=== PATIENT | female | born 1960 | race Caucasian/White ===

== ENCOUNTER 2022-05-11 07:59 | Outpatient (CLI) | payer BC, SELFPAY ==
[2022-05-11 10:52] LABS: Kit Draw Collected
== END 2022-05-11 08:00 | disposition home or self-care (01) ==
LOC: ANHGOSHLAB 08:01
PROVIDERS: PCP Internal Medicine; Visit Provider Clinical Nurse Specialist
DX: Z13.228 Encounter for screening for other metabolic disorders (principal); F41.9 Anxiety disorder, unspecified; Z87.19 Personal history of other diseases of the digestive system; R73.9 Hyperglycemia, unspecified; Z13.220 Encounter for screening for lipoid disorders
CPT/HCPCS: 36415

== ENCOUNTER → 2022-05-11 08:27 | Outpatient (CLI) | payer BC, SELFPAY ==
--- NOTE | ~2022-05-11 | XR_ITS ---
EXAMINATION: XR chest 2V DATE: 05/11/2022 08:46 INDICATION: Cough, fever, and sore throat TECHNIQUE: PA and lateral views of the chest are obtained. COMPARISON: None available FINDINGS: The lungs are free of acute opacities. No pleural effusion or pneumothorax. The cardiomedia stinal silhouette is normal. There is mild thoracic spondylosis. Bilateral breast implants are noted. IMPRESSION: 1. No acute cardiopulmonary abnormality. Reviewed, dictated and finalized at location L.
== END ==
PROVIDERS: PCP Internal Medicine; Visit Provider Clinical Nurse Specialist
DX: R05.9 Cough, unspecified (principal); R50.9 Fever, unspecified; J02.9 Acute pharyngitis, unspecified
CPT/HCPCS: 71046

== ENCOUNTER 2022-05-22 13:23 | Outpatient (CLI) | payer BC, SELFPAY ==
--- NOTE | 2022-05-22 13:49 | ECHO_ITS ---
Patient Info Name: Tari Kern Age: 62 years : 1960 Gender: Female Ht: 64 in Wt: 158 lbs BSA: 1.82 m2 Technical Quality: Fair Exam Date: 05/22/2022 2:04 PM Exam Location: [facility] Pulmonary Patient Status: Outpatient Admit Date: 05/22/2022 Staff Ordering Physician: Yessy Betts Registered Respiratory Therapist: Cassandra Cruz RDCS Attending Provider: Yessy Betts Referring Physician: Roxane LEONE; Exam Type: CA echo doppler color flow Study Info Indications - Hypotension, unspecified Complete two-dimensional, color flow and Doppler transthoracic echocardiogram is performed. Summary 1. Complete two-dimensional, color flow and Doppler transthoracic echocardiogram is performed. 2. Left ventricular chamber dimension is normal. 3. Left ventricular systolic function is normal, estimated at 60-65%. 4. There is mild concentric increased left ventricular wall thickness. 5. The left ventricular diastolic function is grade I diastolic dysfunction. 6. E/e' 12 is mildly elevated. 7. Global longitudinal strain is abnormal at -15.7%. 8. There is trivial pericardial effusion. Left Ventricle E/e' 12 is mildly elevated. Global longitudinal strain is abnormal at -15.7%. Left ventricular chamber dimension is normal. Left ventricular systolic function is normal, estimated at 60-65%. There is mild concentric increased left ventricular wall thickness. The left ventricular diastolic function is grade I diastolic dysfunction. Right Ventricle Right ventricular chamber dimension is normal. Right ventricular systolic function is normal. Left Atria Left atrial chamber dimension is normal. Right Atria Right atrial chamber dimension is normal. Aortic Valve The aortic valve is trileaflet. There is no aortic valve stenosis. There is no aortic valve regurgitation. Pulmonic Valve There is no pulmonic regurgitation. Mitral Valve There is no mitral valve stenosis. There is no mitral valve regurgitation. Tricuspid Valve There is no tricuspid valve regurgitation. Pericardium/Pleural There is trivial pericardial effusion. Inferior Vena Cava Normal inferior vena cava with >50% collapse upon inspiration consistent with normal right atrial pressure, 5 mmHg. Aorta The aortic root size at the sinus of Valsalva is normal. Left Ventricular Outflow Tract Name Value Normal LVOT 2D LVOT Diameter 1.9 cm LVOT Doppler LVOT Peak Gradient 5 mmHg LVOT Mean Gradient 3 mmHg LVOT VTI 18 cm LVOT VTI/AV VTI Ratio 1.0 LVOT Stroke Volume 52 ml LVOT CO 4.6 l/min LVOT CI 2.5 l/min/m2 Pulmonic Valve Name Value Normal RVOT Doppler RVOT Peak Gradient 2
== END 2022-05-22 13:24 | disposition home or self-care (01) ==
PROVIDERS: PCP Internal Medicine; Visit Provider Clinical Nurse Specialist
DX: R07.9 Chest pain, unspecified (principal); R93.1 Abnormal findings on diagnostic imaging of heart and coronary circulation
CPT/HCPCS: 93306

== ENCOUNTER 2022-05-22 13:27 | Outpatient (CLI) | payer BC, SELFPAY ==
--- NOTE | ~2022-05-22 | CT_ITS ---
EXAMINATION: CT lung screening DATE: 05/22/2022 14:49 INDICATION: Lung cancer screening. History of tobacco dependence. TECHNIQUE: Computed tomography (CT) of the chest was performed without intravenous contrast. The dose -length product was 77.91 mGy-cm. Automated exposure control and iterative reconstruction technique w ere employed. Chest dated 05/11/2022 COMPARISON: CT dated 05/22/2022 FINDINGS: No thoracic lymphadenopathy. Heart size normal. No significant pleural or pericardial effus ion. There is left adrenal thickening, likely benign hyperplasia. There peripherally calcified breast implants. No endobronchial lesions. Mild emphysema. No pneumothorax. There is a 2 mm right upper lob e nodule which appears solid. No focal airspace consolidation. There is a 1-2 mm left basilar nodule. No pneumothorax. IMPRESSION: 1. Lung-RADS category 2: Benign appearance or behavior. Continue annual screening with noncontrast lo w-dose chest CT in 12 months. Reviewed, dictated and finalized at location A. IMPRESSION: 1. Lung-RADS category 2: Benign appearance or behavior. Continue annual screeni ng with noncontrast low-dose chest CT in 12 months.
== END 2022-05-22 13:28 | disposition home or self-care (01) ==
LOC: ANHIMG 13:29
PROVIDERS: PCP Internal Medicine; Visit Provider Clinical Nurse Specialist
DX: Z12.2 Encounter for screening for malignant neoplasm of respiratory organs (principal); Z87.891 Personal history of nicotine dependence
CPT/HCPCS: 71271

== ENCOUNTER 2022-05-24 09:34 | Outpatient (CLI) | payer BC, SELFPAY ==
--- NOTE | 2022-05-24 09:58 | EST_ITS ---
Patient Info Name: Tari Kern Age: 62 years : 1960 Gender: Female Ht: 64 in Wt: 158 lbs BSA: 1.82 m2 HR: 91 bpm BP: 163 / 100 mmHg Heart Rhythm: Sinus Rhythm Exam Date: 05/24/2022 10:08 AM Exam Location: [facility] Stress Patient Status: Outpatient Admit Date: 05/24/2022 Staff Ordering Physician: Yessy Betts Attending Provider: Yessy Betts Exercise Technologist: Shey Ware RDCS Exercise Physician: Jatin Rodriguez DO Exam Type: CA stress test treadmill Study Info A treadmill exercise stress test was performed. Summary 1. 1. Negative Christopher exercise stress test for ischemic ST changes by ECG criteria. 2. 2. Poor functional capacity, achieving 4.7 METs of workload. 3. 3. Rapid HR response to exercise. 4. 4. Baseline hypertension with hypertensive response to exercise. 5. 5. Appropriate HR recovery at 1 minute post exercise. 6. 6. No imaging with stress testing. 7. 7. Patient informed of the above results. Protocol: Christopher Stress ECG Details Stage: REST Duration (min): 3 min : 50 sec Speed (mph): 0.0 Grade (%): 0 HR (bpm): 93 SBP (mmHg): 163 DBP (mmHg): 100 METS: --- Stage: REST Duration (min): 8 min : 43 sec Speed (mph): 0.0 Grade (%): 0 HR (bpm): 97 SBP (mmHg): 163 DBP (mmHg): 100 METS: --- Stage: STAGE 1 Duration (min): 1 min : 0 sec Speed (mph): 1.7 Grade (%): 10 HR (bpm): 115 SBP (mmHg): 163 DBP (mmHg): 100 METS: --- Stage: STAGE 1 Duration (min): 2 min : 0 sec Speed (mph): 1.7 Grade (%): 10 HR (bpm): 137 SBP (mmHg): 163 DBP (mmHg): 100 METS: --- Stage: STAGE 1 Duration (min): 2 min : 56 sec Speed (mph): 1.7 Grade (%): 10 HR (bpm): 148 SBP (mmHg): 181 DBP (mmHg): 114 METS: --- Stage: RECOVERY Duration (min): 0 min : 3 sec Speed (mph): 1.5 Grade (%): 0 HR (bpm): 151 SBP (mmHg): 181 DBP (mmHg): 114 METS: --- Stage: RECOVERY Duration (min): 1 min : 3 sec Speed (mph): 0.0 Grade (%): 0 HR (bpm): 134 SBP (mmHg): 181 DBP (mmHg): 114 METS: --- Stage: RECOVERY Duration (min): 2 min : 3 sec Speed (mph): 0.0 Grade (%): 0 HR (bpm): 111 SBP (mmHg): 181 DBP (mmHg): 114 METS: --- Stage: RECOVERY Duration (min): 3 min : 3 sec Speed (mph): 0.0 Grade (%): 0 HR (bpm): 104 SBP (mmHg): 215 DBP (mmHg): 93 METS: --- Stage: RECOVERY Duration (min): 4 min : 3 sec Speed (mph): 0.0 Grade (%): 0 HR (bpm): 102 SBP (mmHg): 215 DBP (mmHg): 93 METS: --- Stage: RECOVERY Duration (min): 5 min : 3 sec Speed (mph): 0.0 Grade (%): 0 HR (bpm): 101 SBP (mmHg): 202 DBP (mmHg): 94 METS: --- Stage: RECOVERY Duration (min): 5 min : 33 sec Speed (mph): 0.0 Grade (%): 0 HR (bpm): 103 SBP (mmHg): 202 DBP (mmHg): 94 METS
== END 2022-05-24 09:35 | disposition home or self-care (01) ==
LOC: ANHCARD 09:38
PROVIDERS: PCP Internal Medicine; Visit Provider Clinical Nurse Specialist
DX: R07.9 Chest pain, unspecified (principal)
CPT/HCPCS: 93017

== ENCOUNTER 2022-06-22 07:48 | Outpatient (CLI) | payer BC, SELFPAY ==
--- NOTE | ~2022-06-22 | NM_ITS ---
EXAMINATION: NM sarah stress w perfusion DATE: 06/22/2022 10:14 INDICATION: Chest pain. TECHNIQUE: Rest images were obtained following intravenous administration of 11.5 mCi Tc99m tetrofosm in (Myoview). The patient was infused intravenously with Lexiscan (regadenoson). Then, 35.0 mCi Tc99m tetrofosmin (Myoview) was administered intravenously, and supine and prone stress images were obtain ed. Data was reconstructed into short axis and horizontal and vertical long axis SPECT images. Gated SPECT images were also obtained. COMPARISON: Chest CT 05/22/2022 FINDINGS: Breast attenuation artifact is noted. There is no definite reversible or fixed perfusion ab normality to suggest ischemia or infarction. There is no segmental wall motion abnormality. Left ve ntricular ejection fraction measures > 70%. IMPRESSION: 1. No definite ischemia or infarct. 2. Normal left ventricular ejection fraction measuring >70%. Reviewed, dictated and finalized at location A.
--- NOTE | 2022-06-22 07:56 | EST_ITS ---
Patient Info Name: Tari Kern Age: 62 years : 1960 Gender: Female Ht: 64 in Wt: 160 lbs BSA: 1.83 m2 Exam Date: 06/22/2022 9:10 AM Exam Location: [facility] Stress Patient Status: Outpatient Admit Date: 06/22/2022 Staff Ordering Physician: Yessy Betts Attending Provider: Yessy Betts Exercise Technologist: Cassandra Cruz RDCS Exercise Physician: Jatin Rodriguez DO Exam Type: CA stress sarah w NM Study Info Indications R07.9 - Chest pain, unspecified A regadenoson stress test was performed. Summary 1. 1. Negative lexiscan stress test for ischemic ST changes by ECG criteria. 2. 2. Baseline hypertension. 3. 3. Nuclear scan to follow and will be reported separately. Please correlate with it. 4. 4. Patient informed of the above results. Protocol: Lexiscan Stress ECG Details Stage: REST Duration (min): 2 min : 4 sec HR (bpm): 98 SBP (mmHg): 183 DBP (mmHg): 104 Stage: REST Duration (min): 12 min : 39 sec HR (bpm): 98 SBP (mmHg): 183 DBP (mmHg): 104 Stage: STAGE 1 Duration (min): 0 min : 59 sec HR (bpm): 116 SBP (mmHg): 186 DBP (mmHg): 88 Stage: RECOVERY Duration (min): 1 min : 0 sec HR (bpm): 120 SBP (mmHg): 182 DBP (mmHg): 90 Stage: RECOVERY Duration (min): 2 min : 0 sec HR (bpm): 116 SBP (mmHg): 182 DBP (mmHg): 90 Stage: RECOVERY Duration (min): 3 min : 0 sec HR (bpm): 112 SBP (mmHg): 177 DBP (mmHg): 95 Stage: RECOVERY Duration (min): 3 min : 9 sec HR (bpm): 115 SBP (mmHg): 177 DBP (mmHg): 95 Rest HR: 98 bpm Peak HR: 120 bpm Rest Sys BP: 183 mmHg Peak Sys BP: 186 mmHg Max Pred HR: 158 bpm % Max Pred HR: 76 % Target HR: 134 bpm Max RPP: 22,320 bpm*mmHg Termination Reason: Completed protocol Cardiac Symptoms: Shortness of breath, Nausea Total Time: 1 min : 0 sec Rest Ayers BP: 104 mmHg Peak Ayers BP: 88 mmHg Total Dose: 0.4 mg Resting ECG Sinus rhythm. Stress ECG No ST changes. Arrhythmias None. Report Signatures
== END 2022-06-22 07:49 | disposition home or self-care (01) ==
PROVIDERS: PCP Internal Medicine; Visit Provider Clinical Nurse Specialist
DX: R07.9 Chest pain, unspecified (principal); R06.2 Wheezing; R06.02 Shortness of breath; Z72.0 Tobacco use
CPT/HCPCS: 78452; 93017; A9502; J2785

== ENCOUNTER 2022-06-26 08:10 | Outpatient (CLI) | payer BC, SELFPAY ==
--- NOTE | 2022-06-26 10:45 | WPDPFTINT ---
PFT Procedure Performed PFT Procedure Performed Spirometry with Pre/Post Bronchodilator Plethysmography (Lung Vol) Diffusing Cap (DLCO) Flow Vol Loop PFT Interpretation Lung volumes were measured with the body plethysmography method. Lung volumes are unremarkable. Spirometry showed normal expiratory flow rates and a normal FEV1 to FVC ratio of 73%. Following administration of a bronchodilator there was no significant increase in expiratory flow rates. Lung diffusion capacity is within the normal range. Impression: Spirometry, lung volumes, and lung diffusion capacity all within the normal range.
== END 2022-06-26 08:11 | disposition home or self-care (01) ==
LOC: ANHPFT 08:12
PROVIDERS: PCP Internal Medicine; Visit Provider Clinical Nurse Specialist
DX: R06.2 Wheezing (principal); R06.02 Shortness of breath; Z72.0 Tobacco use
CPT/HCPCS: 94060; 94726; 94729

== ENCOUNTER 2022-09-13 08:08 | Outpatient (CLI) | payer BC, SELFPAY ==
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
[2022-10-18 10:28] VITALS: BMI 27.4
--- NOTE | 2023-01-16 08:58 | SLEEP ---
NEW [id number]
== END 2022-09-29 12:53 | disposition home or self-care (01) ==
LOC: ANHCSM 08:09
PROVIDERS: PCP Internal Medicine; Visit Provider Internal Medicine
DX: G47.30 Sleep apnea, unspecified (principal); G47.33 Obstructive sleep apnea (adult) (pediatric)
CPT/HCPCS: 95800

== ENCOUNTER 2022-11-08 08:17 | Outpatient (CLI) | payer BC, SELFPAY ==
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
[2022-11-28 18:12] VITALS: BMI 28.8
== END 2022-11-09 05:31 | disposition home or self-care (01) ==
PROVIDERS: PCP Internal Medicine; Visit Provider Internal Medicine
DX: G47.33 Obstructive sleep apnea (adult) (pediatric) (principal)
CPT/HCPCS: 95811

== ENCOUNTER 2022-12-08 08:44 | Outpatient (CLI) | payer BC, SELFPAY ==
--- NOTE | ~2022-12-08 | US_ITS ---
EXAMINATION: US thyroid DATE: 12/08/2022 09:11 INDICATION: Nontoxic goiter TECHNIQUE: Multiple ultrasound images of the thyroid were obtained. COMPARISON: None. FINDINGS: The right thyroid lobe measures 3.5 x 1.6 x 1.2 cm. The left thyroid lobe measures 3.5 x 1.6 x 1.1 c m. 1 cm very solid very hypoechoic nodule which is wider than tall with smooth margins and without e chogenic foci in the cephalad left thyroid lobe (TI-RADS 5, highly suspicious , FNA if >=1.0 cm, george al followup is >0.5 cm). There is normal echotexture, echogenicity and vascular flow throughout the r emainder of the thyroid gland. IMPRESSION: 1. 1 cm TI RADS 5 left thyroid nodule for which ultrasound guided biopsy would be recommended. Reviewed, dictated and finalized at location A.
== END 2022-12-08 08:45 ==
LOC: GOSHIMG 08:45
PROVIDERS: PCP Internal Medicine; Visit Provider Registered Nurse
DX: E04.9 Nontoxic goiter, unspecified (principal)
CPT/HCPCS: 76536

== ENCOUNTER 2023-01-01 08:56 | Outpatient (CLI) | payer BC, OTHER, SELFPAY ==
[2023-01-01 12:42] LABS: Bilirubin,Total 0.8 mg/dL (0.2-1.3); Potassium 4.6 mmol/L (3.4-5.0); Sodium 138 mmol/L (137-145); Triglycerides 194 mg/dL (<150)
[2023-01-01 12:43] LABS: Alanine Aminotransferase 54 U/L (6-35); Albumin Level 5.1 g/dL (3.5-5.1); Alkaline Phosphatase 96 U/L (38-126); Anion Gap 17 mmol/L (8-16); Aspartate Amino Transferase 77 U/L (14-36); Blood Urea Nitrogen 11 mg/dL (7-17); Calcium 9.8 mg/dL (8.4-10.2); Carbon Dioxide 20 mmol/L (22-30); Chloride 101 mmol/L (98-107); Cholesterol 277 mg/dL (0-200); Estimated Glomerular Filt Rate > 60; Glucose 74 mg/dL (65-110)
[2023-01-01 13:37] LABS: HDL Direct 112 mg/dL
[2023-01-01 14:22] LABS: LDL Cholesterol Direct 118 mg/dL
== END 2023-01-01 08:57 | disposition home or self-care (01) ==
LOC: ANHGOSHLAB 08:58
PROVIDERS: Clinical Nurse Specialist; PCP Internal Medicine; Visit Provider Otolaryngology
DX: E03.9 Hypothyroidism, unspecified (principal); E78.5 Hyperlipidemia, unspecified
CPT/HCPCS: 36415; 80053; 80061; 84443

== ENCOUNTER 2023-05-11 08:14 | Outpatient (CLI) | payer BC, SELFPAY ==
[2023-05-11 14:09] LABS: HIV 1/2 Ab P24 Ag Result Negative (Negative)
[2023-05-11 15:10] LABS: Iron 108 ug/dL (37-170)
[2023-05-11 15:19] LABS: Percent Iron Saturation 28 % (20-50)
[2023-05-11 15:24] LABS: Hepatitis C Virus Antibody Negative (Negative)
[2023-05-11 17:32] LABS: Alanine Aminotransferase 61 U/L (6-35); Albumin Level 4.7 g/dL (3.5-5.1); Alkaline Phosphatase 93 U/L (38-126); Anion Gap 11 mmol/L (4-12); Aspartate Amino Transferase 93 U/L (14-36); Bilirubin,Total 0.6 mg/dL (0.2-1.3); Blood Urea Nitrogen 13 mg/dL (7-17); Carbon Dioxide 19 mmol/L (22-30); Chloride 108 mmol/L (98-107); Estimated Glomerular Filt Rate > 60; Glucose 95 mg/dL (65-110); Potassium 4.1 mmol/L (3.4-5.0); Sodium 138 mmol/L (137-145)
[2023-05-17 03:55] LABS: Hepatitis B Core Ab Total Nonreactive (Nonreactive)
== END 2023-05-11 08:15 | disposition home or self-care (01) ==
LOC: ANHGOSHLAB 08:16
PROVIDERS: PCP Internal Medicine; Visit Provider Clinical Nurse Specialist
DX: R74.01 Elevation of levels of liver transaminase levels (principal)
CPT/HCPCS: 36415; 80053; 83540; 83550; 86703; 86704; 86803; G0432

== ENCOUNTER 2023-05-23 07:27 | Outpatient (CLI) | payer BC, SELFPAY ==
--- NOTE | ~2023-05-23 | US_ITS ---
US right upper quadrant INDICATION: Elevated levels of liver transaminase enzymes and PROCEDURE: Realtime right upper abdominal ultrasound. COMPARISON: No prior studies for comparison. FINDINGS: The pancreas is normal without focal mass or pancreatic ductal dilation. Liver echotexture is increased, consistent with fatty infiltration. There is normal directional flow in the portal ve in. The gallbladder is normal without stones, gallbladder wall thickening or pericholecystic fluid. Comm on bile duct measures 6 mm. No sonographic Campos's sign. IMPRESSION: 1: Fatty infiltration of the liver. Reviewed, dictated and finalized at location B.
== END 2023-05-23 07:28 ==
LOC: MICIMG 07:28
PROVIDERS: PCP Clinical Nurse Specialist; Visit Provider Clinical Nurse Specialist
DX: R74.01 Elevation of levels of liver transaminase levels (principal); K76.0 Fatty (change of) liver, not elsewhere classified
CPT/HCPCS: 76705

== ENCOUNTER 2023-12-28 10:26 | Inpatient (IN) | payer BC, SELFPAY ==
[2023-12-28] VITALS (13 sets, daily range): BP systolic 165–209; BP diastolic 88–126; PULSE 89–110; RESP 16–30; TEMP 36.2–36.6; O2SAT 97–100; BMI 29.6
--- NOTE | ~2023-12-28 | US_ITS ---
EXAM: ABDOMEN ULTRASOUND HISTORY: pancreatitis COMPARISON: Reference is made to CT examination of the abdomen and pelvis performed approximately 1 h our earlier study is seen. The sheath and selectively centimeter FINDINGS: LIVER: The liver is increased in echogenicity and size measuring 19 cm in longitudinal dimension. A well-circumscribed focus of decreased echogenicity is identified within the left lobe measuring 9 x 8 x 9 mm which when compared with contrast-enhanced CT examination of the abdomen and pelvis, perfor med the same day represents a small cyst. No vascularity is present within this area. While looking at the cross-sectional imaging, there is a single of vessels adjacent to the inferior v josue cava at the level of the celiac axis, which may represent an arteriovenous malformation versus a flash filling hemangioma (more likely) within the caudate lobe. The surface of the liver is smooth GALLBLADDER: No stones are identified within the gallbladder, which is otherwise unremarkable. No gallbladder wall thickening or pericholecystic fluid. BILE DUCTS: Common bile duct measures 8.8mm, somewhat dilated for a patient of this age. PANCREAS: Limited evaluation of the pancreas secondary to overlying bowel gas IMPRESSION: Gallbladder distention, without stones identified Common bile duct distention. Fatty infiltration of an enlarged liver. Indeterminate focus within the caudate lobe, possibly a flash filling hemangioma, and less likely a a rteriovenous malformation. Reviewed, dictated and finalized at location A. RVISOR CAB IMPRESSION: Gallbladder distention, without stones identified Common bile duct distention. Fatty infiltration of an enlarged liver. Indeterminate focus within the caudate lobe, possibly a flash filling hemangiom a, and less likely a arteriovenous malformation.
--- NOTE | ~2023-12-28 | CT_ITS ---
EXAMINATION: CT abdomen pelvis w con DATE: 12/28/2023 12:23 INDICATION: Lateral abdominal pain, nausea, vomiting and diarrhea. TECHNIQUE: Computed tomography (CT) of the abdomen and pelvis was performed with 100 mL Omnipaque-350 intravenous contrast. Automated exposure control and iterative reconstruction technique were employe d. The dose-length product was 429.05 mGy-cm. COMPARISON: None FINDINGS: Mild dependent atelectasis in the bilateral lower lobes. Heart size is normal. No pericardial or pleu ral effusion. Diffuse hepatic steatosis. Gallbladder, spleen, bilateral adrenal glands and kidneys ar e normal. Swelling of the pancreatic tail with surrounding peripancreatic inflammatory stranding and multiple scattered dystrophic parenchymal calcification consistent with acute on chronic interstitial pancreatitis. There is mild likely reactive peripancreatic lymphadenopathy. No peripancreatic absces ses, necrosis or other peripancreatic fluid collections. Bladder, uterus and bilateral adnexa are unr emarkable. Small duodenal diverticulum posterior to third junction of the second and third portions o f the duodenum. Bowels including the appendix are otherwise normal. No free intraperitoneal gas or fl uid. No pathologically enlarged abdominal or pelvic lymphadenopathy. Mild lumbar levocurvature with m oderate spondylosis. IMPRESSION: 1. Acute on chronic interstitial pancreatitis. 2. Diffuse hepatic steatosis. Reviewed, dictated and finalized at location B. SCAPE CREW LEADER
--- NOTE | ~2023-12-28 | MR_ITS ---
EXAMINATION: MR MRCP wo/w con/w 3D wo ind DATE: 01/01/2024 12:56 INDICATION: Biliary dilatation. Liver mass. TECHNIQUE: Magnetic resonance imaging (MRI) of the abdomen was performed without and with 17 mL Multi Orion intravenous contrast. Sequences included coronal T2-weighted FS FSE, coronal T2-weighted FSE, a xial T1-weighted LAVA, coronal FS FIESTA, axial dual-echo T1-weighted SPGR, coronal lava-FLEX, sagitt al T2-weighted FSE, axial T2-weighted FSE, and axial DWI. Thick-slab T2-weighted FSE images were obta ined for magnetic resonance cholangiopancreatography (MRCP). Maximum intensity projection 3-D reconst ructions of the volumetric data were created by the technologist. Postcontrast sequences included cor onal LAVA-flex and time course of axial T1-weighted LAVA. COMPARISON: Abdomen ultrasound 12/28/2023, CT abdomen and pelvis 12/28/2023, chest CT 05/22/22 FINDINGS: ABDOMEN MRI: There is diffuse hepatic steatosis. There are cysts in the liver measuring up to 12 mm. In segment I of the liver, there is a 14 mm mass with interrupted peripheral puddling of contrast, co nsistent with a hemangioma. The gallbladder is distended. Gallbladder wall thickening is noted. There is mild intrahepatic biliary duct dilatation. There is fat stranding around the pancreas, consistent with acute interstitial pancreatitis. The spleen and right adrenal gland are normal. There is chroni c thickening of left adrenal gland, likely benign. The kidneys are normal. There are no dilated loops of bowel. ABDOMEN MRCP: The common duct is dilated to 14 mm. No choledocholithiasis. IMPRESSION: 1. Acute interstitial pancreatitis. 2. Gallbladder distention and intrahepatic and extrahepatic biliary duct dilatation, worsened from , which may be secondary to the acute pancreatitis. 3. 14 mm hemangioma in the liver. 4. Diffuse hepatic steatosis. Reviewed, dictated and finalized at location A. VISUAL DESIGNER IMPRESSION: 1. Acute interstitial pancreatitis. 2. Gallbladder distention and intrahepatic and extrahepatic biliary duct dilata tion, worsened from 12/28/2023, which may be secondary to the acute pancreatiti s. 3. 14 mm hemangioma in the liver. 4. Diffuse hepatic steatosis.
--- NOTE | ~2023-12-28 | XR_ITS ---
Portable chest x-ray Comparison: 05/11/2022 Clinical History: Nausea and vomiting Findings: Lungs are clear, without focal consolidation or pleural effusion. Cardiomediastinal silho uette is stable. Bones and soft tissues are stable. Impression: Clear lungs. Reviewed, dictated and finalized at location . [facility] Impression: Clear lungs.
--- NOTE | 2023-12-28 11:12 | ECG_ITS ---
Test Date: 2023-12-28 11:44:08 Measurements Intervals [place] Rate: 90 P: 27 CA: 161 QRS: 77 QRSD: 92 T: 47 QT: 364 QTc: 446 Interpretive Statements SINUS RHYTHM MINIMAL Q WAVES- INF/LAT LEADS BORDERLINE ST ABNORMALITY- ANTEROLAT/INF LEADS BORDERLINE ECG No previous ECG available for comparison Electronically Signed On 12-28-2023 12:05:27 [employer]I ASSOCIATE by Jatin Rodriguez D.O.
[2023-12-28] MEDS: SODIUM CHLORIDE 0.9% IV 3,000 ML 999 ML IV CONT (11:15)
[2023-12-28] MEDS: HYDROmorphone HCL INJ (*CRX) 1 MG/ML SYR 0.5 MG IV PUSH (11:23)
[2023-12-28] MEDS: FAMOTIDINE 20 MG/2 ML VIAL IV PUSH (11:24)
[2023-12-28] MEDS: ONDANSETRON INJ 4 MG/2 ML VIAL IV PUSH ×2 (11:24→18:22)
[2023-12-28 11:51] LABS: Basophils Percent Auto 0.2 % (0.2-1.2); Hematocrit 46.9 % (37.0-47.0); Hemoglobin 15.5 g/dL (12.0-15.0); Immature Granulocyte Absolute 0.03 K/mm3 (0.00-0.031); Immature Granulocyte Percent A 0.3 % (0-0.5); Lymphocytes Absolute Auto 0.82 K/mm3 (0.9-3.2); Lymphocytes Percent Auto 8.1 % (18.3-44.2); Mean Corpuscular Hemoglobin 32.5 pg (26-34); Mean Corpuscular Volume 98.3 fl (80-100); Monocytes Absolute Auto 0.5 K/mm3 (0.1-0.6); Monocytes Percent Auto 5.3 % (2.6-8.5); Neutrophils Absolute Auto 8.7 K/mm3 (1.3-6.7); Neutrophils Percent Auto 86.1 % (45.5-73.1); Platelet Count Result 155 k/mm3 (150-375); Red Blood Count 4.77 M/mm3 (4.2-5.4); Red Cell Distribution Width 13.2 % (11.5-14.5); White Blood Count 10.1 K/mm3 (4.5-10.0)
[2023-12-28 12:03] LABS: Ethanol < 10 mg/dL (<10)
[2023-12-28 12:05] LABS: Alanine Aminotransferase 63 U/L (6-35); Alkaline Phosphatase 102 U/L (38-126); Aspartate Amino Transferase 84 U/L (14-36); Blood Urea Nitrogen 12 mg/dL (7-17); Calcium 10.6 mg/dL (8.4-10.2); Carbon Dioxide 15 mmol/L (22-30); Chloride 105 mmol/L (98-107); Estimated CRCL calculation 83 ml/min; Estimated Glomerular Filt Rate > 60; Glucose 172 mg/dL (65-110)
[2023-12-28 12:06] LABS: Anion Gap 18 mmol/L (4-12); Magnesium 1.8 mg/dL (1.6-2.3); Phosphorus 3.4 mg/dL (2.5-4.5); Sodium 138 mmol/L (137-145)
[2023-12-28 12:15] LABS: Influenza A QL RT-PCR Negative (Negative); Influenza B QL RT-PCR Negative (Negative); RSV RNA, RT-PCR Negative (Negative); SARS-CoV-2 RNA PCR Negative (Negative)
[2023-12-28 12:47] LABS: Add Urine Microscopic? YES; Appearance Urine Clear (Clear); Bacteria Urine None Seen /hpf; Bilirubin Urine Negative (Negative); Blood Urine Negative (Negative); Color Urine Yellow (Yellow); Glucose Urine UA Trace mg/dL (Negative); Ketones Urine 4+ mg/dL (Negative); Leukocyte Esterase Ur Negative LEU/UL (Negative); Nitrate Urine Negative (Negative); Protein Urine 1+ mg/dL (Negative); RBC Urine 0-2 /hpf (0-2); Specific Grav Ur 1.026 (1.001-1.035); Squamous Epithelial Cell Urine None Seen /hpf (Few); Urobilinogen Urine 0.2 mg/dL (<2.0); WBC Urine 0-5 /hpf (0-3)
[2023-12-28 12:53] LABS: Lipase 7501 U/L (23-300)
[2023-12-28 13:23] LABS: Amphetamine Screen Urine Negative (Negative); Barbiturate Screen Urine Negative (Negative); Benzodiazepines Screen Urine Negative (Negative); Cannabinoid Screen Urine Negative (Negative); Cocaine Screen Urine Negative (Negative); Methadone Screen Urine Negative (Negative); Opiate Screen Urine Negative (Negative); Phencyclidine Screen Urine Negative (Negative)
[2023-12-28] MEDS: HYDROmorphone HCL INJ (*CRX) 1 MG/ML SYR IV PUSH ×4 (13:26→22:11)
--- NOTE | 2023-12-28 14:33 | ED.GENADULT ---
HPI - General Adult General Chief complaint: Abdominal Pain Stated complaint: Abd Pain Time Seen by Provider: 12/28/23 10:28 History of Present Illness HPI narrative: This is a 63-year-old female with daily alcohol use presenting for abdominal pain. Patient says for the last 5 days she has been having intense abdominal pain in middle of her stomach. It is associated with nausea and vomiting. She does not been eating or drinking well. She denies fevers chills chest pain shortness of breath or urinary symptoms. No diarrhea. no hx of pancreatitis. Patient tried to have some vodka last night but threw it up. Last drink before that was 4 days ago. Related Data Allergies Allergy/AdvReac Type Severity Reaction Status Date / Time sertraline [From Zoloft] Allergy Mild Unknown Verified 12/28/23 10:37 Sulfa (Sulfonamide Allergy Mild Unknown Verified 12/28/23 10:37 Antibiotics) Penicillins Allergy Unknown Swelling Verified 12/28/23 13:26 PMFSH Past Medical History Medical History Admission for breast augmentation Elevated liver enzymes History of 1 History of pancreatitis Hypertension Insomnia Surgical History Surgical History H/O breast augmentation History of endometrial ablation Family History Family History Father Alcoholism Mother Acute myelogenous leukemia Hypertension Heart disease after Chemotherapy Sibling Alcoholism Depression Social History Social History Smoking status: Current every day smoker Tobacco type: cigarettes Additional smoking assessment comments: smoke 1 pack a day Alcohol intake: current Alcohol use details: drinks vodka daily Substance use: former Substance use type: crack/cocaine Lack of Transportation: No Lack of Food: Never True Current Housing: I Have Housing Concerned About Future Housing: No Difficulty Paying Gas/Electric Bills: No Difficulty Paying for Meds: No Currently Unemployed: No Education: Trade/Vocational Certificate Difficulty w/ Childcare or Family Care: No Living arrangements: with family Occupation/Education: retired Gender identity (if verbalized by the patient): Female Sexual Orientation (if Verbalized by the Patient): Straight or Heterosexual Spiritual care concerns: No Exam Narrative: APPEARANCE: patient appears uncomfortable Head: atraumatic. EYES: EOMI, NOSE: Atraumatic NECK: Trachea midline RESPIRATORY: No increased rate of breathing, CTAB CARDIOVASCULAR: RRR, ABDOMINAL: tenderness to palpation in the epigastric area without guarding rebound, no CVA tenderness MUSCULOSKELETAl: No obvious deformities NEURO: Alert. Moving 4/4 extremities SKIN:: Warm, dry. Normal color PSYCHIATRIC: Normal affect Course Vital Signs Vital signs: Vital Signs Temperature 97.6 F 12/28/23 10:27 Pulse Rate 103 H 12/28/23 10:27 Respiratory Rate 25 H 12/28/23 10:27 Blood Pressure 207/112 H 12/28/23 10:27 Pulse Oximetry 99 12/28/23 10:27 Oxygen Delivery Room Air 12/28/23 10:27 Temperature 97.6 F 12/28/23 10:27 Pulse Rate 97 12/28/23 13:26 Respiratory Rate 20 12/28/23 13:26 Blood Pressure 200/103 H 12/28/23 13:26 Pulse Oximetry 98 12/28/23 13:26 Oxygen Delivery Room Air 12/28/23 10:27 Medical Decision Making MDM Narrative Medical decision making narrative: -Course: this is a 63-year-old female with daily alcohol use presenting for abdominal pain. Workup significant for pancreatitis. lipase elevated at 7500. Minimal elevations of AST ALT. Right upper quadrant ultrasound did not show evidence of gallstones. Patient given fluid resuscitation and pain control. no tremors or evidence of alcohol withdrawal at this time. Patient will be admitted to the hospital for further management. -DDX includes but is not limited to: Gastroenteritis, pancreatitis, gallbladder disease, alcoholic gastritis, alcoholic hepatitis, colitis enterocolitis -Co-morbidities complicating care: daily alcohol use, hypertension -Social determinants of health: daily drinker -Independent interpretation of studies: labs and imaging reviewed Independent EKG interpretation: Rhythm [sinus], Rate [90], [place] -[normal], [place] -[normal], QRS [narrow], QTC [normal], T waves -[negative for concerning inversions], ST Segments - [Negative for concerning elevations] Final interpretations: [Normal Sinus Rhythm] -Discussion of Management/Consultants:Falguni -Shared decision making / Disposition: admitted. Vital Signs Vital Signs: Vital Signs Temperature 97.6 F 12/28/23 10:27 Pulse Rate 103 H 12/28/23 10:27 Respiratory Rate 25 H 12/28/23 10:27 Blood Pressure 207/112 H 12/28/23 10:27 Pulse Oximetry 99 12/28/23 10:27 Oxygen Delivery Room Air 12/28/23 10:27 Temperature 97.6 F 12/28/23 10:27 Pulse Rate 97 12/28/23 13:26 Respiratory Rate 20 12/28/23 13:26 Blood Pressure 200/103 H 12/28/23 13:26 Pulse Oximetry 98 12/28/23 13:26 Oxygen Delivery Room Air 12/28/23 10:27 Lab Data 12/28/23 11:44 12/28/23 11:44 Labs: Lab Results 12/28/23 12/28/23 12/28/23 Range/Units 11:34 11:44 12:34 WBC 10.1 H (4.5-10.0) K/mm3 RBC 4.77 (4.2-5.4) M/mm3 Hgb 15.5 H (12.0-15.0) g/dL Hct 46.9 (37.0-47.0) % MCV 98.3 (80-100) fl MCH 32.5 (26-34) pg MCHC 33.0 (32-36) g/dl RDW 13.2 (11.5-14.5) % Plt Count 155 (150-375) k/mm3 MPV 10.0 (7.4-10.4) fl Immature Gran % (Auto) 0.3 (0-0.5) % Neut % (Auto) 86.1 H (45.5-73.1) % Lymph % (Auto) 8.1 L (18.3-44.2) % [place] % (Auto) 5.3 (2.6-8.5) % Eos % (Auto) 0.0 (0-4.4) % Baso % (Auto) 0.2 (0.2-1.2) % Lymph # (Auto) 0.82 L (0.9-3.2) K/mm3 [place] # (Auto) 0.5 (0.1-0.6) K/mm3 Eos # (Auto) 0.0 (0-0.3) K/mm3 Baso # (Auto) 0.0 (0.0-0.1) K/mm3 Abs Immat Gran (auto) 0.03 (0.00-0.031) K/mm3 Absolute Neuts (auto) 8.7 H (1.3-6.7) K/mm3 Absolute Nucleated RBC 0.000 (0.0-0.012) K/mm3 Nucleated RBC % 0.0 (0.0-0.2) % Sodium 138 (137-145) mmol/L Potassium 4.0 (3.4-5.0) mmol/L Chloride 105 (98-107) mmol/L Carbon Dioxide 15 L (22-30) mmol/L Anion Gap 18 H (4-12) mmol/L BUN 12 (7-17) mg/dL Creatinine 0.60 L (0.7-1.0) mg/dL Estim Creat Clear Calc 83 ml/min Estimated GFR > 60 (59 - ) Glucose 172 H (65-110) mg/dL Calcium 10.6 H (8.4-10.2) mg/dL Phosphorus 3.4 (2.5-4.5) mg/dL Magnesium 1.8 (1.6-2.3) mg/dL Total Bilirubin 1.0 (0.2-1.3) mg/dL AST 84 H (14-36) U/L ALT 63 H (6-35) U/L Alkaline Phosphatase 102 (38-126) U/L Total Protein 8.0 (6.3-8.2) g/dL Albumin 5.0 (3.5-5.1) g/dL Lipase 7501 H (23-300) U/L Urine Color Yellow (Yellow) Urine Appearance Clear (Clear) Urine pH 5.0 (5.0-9.0) Ur Specific [place] 1.026 (1.001-1.035) Urine Protein 1+ H (Negative) mg/dL Urine Glucose (UA) Trace H (Negative) mg/dL Urine Ketones 4+ H (Negative) mg/dL Ur Blood (Man) Negative (Negative) Urine Nitrate Negative (Negative) Urine Bilirubin Negative (Negative) Urine Urobilinogen 0.2 (<2.0) mg/dL Leukocyte Esterase Rfl Negative (Negative) JACQUELIN/UL Urine RBC 0-2 (0-2) /hpf Urine WBC 0-5 (0-3) /hpf Ur Squamous Epith Cells None seen (Few) /hpf Urine Bacteria None seen /hpf Urine Casts 3-5 Urine Opiates Screen Negative (Negative) Urine Methadone Screen Negative (Negative) Ur Barbiturates Screen Negative (Negative) Ur Phencyclidine Scrn Negative (Negative) Ur Amphetamine Screen Negative (Negative) U Benzodiazepines Scrn Negative (Negative) Urine Cocaine Screen Negative (Negative) U Cannabinoids Screen Negative (Negative) Ethyl Alcohol < 10 (<10) mg/dL Influenza A (RT-PCR) Negative (Negative) Influenza B (RT-PCR) Negative (Negative) RSV (RT-PCR) Negative (Negative) SARS-CoV-2 RNA (RT-PCR) Negative (Negative) Critical Care Time Critical Care Time Critical Care Time: Yes Total Critical Care Time: 35 Discharge Plan Discharge Clinical Impression: Pancreatitis, Daily consumption of alcohol Patient Disposition: Still a Patient Condition: Stable Prescriptions: No Action mupirocin 2 % ointment 1 applic topical BID Qty: 22 1RF Rx Instructions: Intranasal atorvastatin 20 mg tablet 20 mg PO QHS Qty: 90 0RF Rx Instructions: DUE FOR AN APPOINTMENT IN DECEMBER losartan 50 mg tablet 50 mg PO DAILY Qty: 30 0RF Rx Instructions: LAST REFILL UNTIL SEEN-NEEDS APPOINTMENT Follow-up/Referrals: Connor Alexander, DO [Primary Care Provider] -
[2023-12-28] MEDS: METOCLOPRAMIDE HCL INJ 10 MG/2 ML VIAL IV PUSH (15:10)
[2023-12-28] MEDS: LACTATED RINGERS 1,000 ML 125 ML IV CONT (15:10)
--- NOTE | 2023-12-28 15:20 | PM.IMHP ---
H&P: HPI History of Present Illness Date/Time: 12/28/23 15:20 Chief Complaint: Abdominal pain. Narrative: This is a 63-year-old female smoker with history of alcohol abuse, pancreatitis, hypertension, hyperlipidemia, obstructive sleep apnea, who presented to the emergency department via EMS from home for evaluation of abdominal pain. The patient provides the following history. She has not been feeling well for the last 5 days with intense pain in the mid stomach associated with nausea and nonbloody and non bilious vomiting. The pain as sharp and stabbing and seems to radiate to the periumbilical region as well as through to the back. It is worse with eating and drinking. She has not noticed any significant alleviating factors. The symptoms are similar to when she had pancreatitis and she stopped drinking the day of symptom onset however last evening she tried to have some vodka but threw it up immediately. She had some mild shakes for a couple of days but denies withdrawal symptoms at this time. She also denies fever, chills, sweats, hallucinations, tremors, chest pain, hematemesis, melena, and hematochezia. In the ED: Blood pressure was 207/112 on arrival but has improved with pain control. She has been intermittently tachycardic in the low 100s, and a sinus rhythm. The remainder of her vital signs are stable. Labs are significant for WBC count of 10.1, hemoglobin 15.5, carbon dioxide 15, anion gap 18, BUN 12, creatinine 0.60, calcium 10.6, AST 84, ALT 63, lipase 7501. Urinalysis was positive for 1+ protein, trace glucose, and 4+ ketones. Ethyl alcohol level was undetectable. CT of the abdomen and pelvis showed acute on chronic interstitial pancreatitis and diffuse hepatic steatosis. Right upper quadrant ultrasound showed gallbladder distention without stones and common bile duct distension with fatty infiltration of an enlarged liver. She was given fluids, antiemetics, and analgesics and she is being admitted in this setting for further treatment of presumed alcoholic pancreatitis. Review of Systems Review of Systems: 12 systems were reviewed and are negative except for as per HPI. [facility] Past Medical History Medical History Alcohol abuse Fatty liver Hypertension Insomnia Pancreatitis Tobacco dependence Surgical History Surgical History History of breast augmentation History of endometrial ablation Family History Family History Father Alcoholism Mother Acute myelogenous leukemia Hypertension Heart disease after Chemotherapy Sibling Alcoholism Depression Social History Social History (Updated 12/28/23 @ 23:42 by Laura Chauhan PA-C) Social History: Surrogate medical decision maker: Atilio Concha, spouse. Code status: Full code. Smoking packs per day: 1 Smoking cigarettes per day: 20.0 Years smoked: 47 Smoking pack-years: 47.00 Smoking status: Current every day smoker Tobacco type: cigarettes Alcohol intake: current Drinks per week: 21 Alcohol use details: three shots of vodka a day Substance use: former Substance use type: marijuana and crack/cocaine Other substance usage details: vodka- 3 shots per day lAst Alcohol 12/26/23 Last use: MJ in college, cocaine addiction for 8 years- stopped in 2007 Do You Feel Safe in your Home?: Yes Lack of Transportation: No Lack of Food: Never True Current Housing: I Have Housing Concerned About Future Housing: YES Difficulty Paying Gas/Electric Bills: No Difficulty Paying for Meds: No Currently Unemployed: No Education: Trade/Vocational Certificate Difficulty w/ Childcare or Family Care: No Living arrangements: with family Occupation/Education: retired Spiritual care concerns: No Meds Home Medications and Allergies Home Medications Medication Instructions Recorded Confirmed Type atorvastatin 20 mg tablet 20 mg PO QHS #90 tabs 09/18/23 12/28/23 Rx losartan 50 mg tablet 50 mg PO DAILY #30 tabs 12/17/23 12/28/23 Rx Allergies Allergy/AdvReac Type Severity Reaction Status Date / Time sertraline [From Zoloft] Allergy Mild Other Verified 12/28/23 17:55 Sulfa (Sulfonamide Allergy Mild Rash Verified 12/28/23 17:55 Antibiotics) Penicillins Allergy Unknown Swelling Verified 12/28/23 13:26 Vital Signs Vital Signs - 24 hr 12/28/23 10:27 12/28/23 10:46 12/28/23 11:16 Temperature 97.6 F Pulse Rate 103 H 100 102 H Respiratory Rate 25 H 26 H 21 H Blood Pressure 207/112 H 182/126 H 209/111 H Pulse Oximetry 99 100 100 Oxygen Delivery Room Air 12/28/23 11:46 12/28/23 13:26 12/28/23 12:01 Temperature Pulse Rate 89 97 100 Respiratory Rate 18 20 21 H Blood Pressure 165/116 H 200/103 H 208/112 H Pulse Oximetry 100 98 98 Oxygen Delivery 12/28/23 13:26 12/28/23 13:31 12/28/23 14:01 Temperature Pulse Rate 99 93 95 Respiratory Rate 20 16 19 Blood Pressure 200/103 H 186/115 H 173/88 H Pulse Oximetry 98 100 97 Oxygen Delivery 12/28/23 14:16 12/28/23 14:31 12/28/23 15:03 Temperature Pulse Rate 95 95 102 H Respiratory Rate 20 20 30 H Blood Pressure 203/114 H 198/110 H 185/103 H Pulse Oximetry 97 98 99 Oxygen Delivery Exam Narrative: General: Well-developed, mildly ill-appearing female supine in bed in moderate pain. Weight: 70.4 kg. BMI: 29.7. HEENT: PERRL, EOMI. Sclera anicteric. Conjunctiva mildly injected. Tacky mucous membranes. Neck: Supple. Respiratory: Lungs are clear to auscultation bilaterally. Cardiovascular: Tachycardic with normal S1-S2. Gastrointestinal: Abdomen is soft and perhaps slightly distended with positive bowel sounds. She is tender to palpation throughout the periumbilical region but more so in the left upper quadrant. No guarding or rebound tenderness. Skin: Warm and dry. No rash or lesions on limited exam. Extremities: No cyanosis, clubbing, or edema. Radial and pedal pulses intact. Neurological: Alert and oriented. Cranial nerves 2-12 are grossly intact. No tremors. No gross focal deficits to casual conversation. Psychiatric: Pleasant and cooperative with appropriate mood and affect. H&P: Results Labs Labs: Short CBC 12/28/23 Range/Units 11:44 WBC 10.1 H (4.5-10.0) K/mm3 Hgb 15.5 H (12.0-15.0) g/dL Hct 46.9 (37.0-47.0) % Plt Count 155 (150-375) k/mm3 [facility] 12/28/23 11:44 Sodium 138 Potassium 4.0 Chloride 105 Carbon Dioxide 15 L BUN 12 Creatinine 0.60 L Glucose 172 H Calcium 10.6 H Liver Function 12/28/23 Range/Units 11:44 Total Bilirubin 1.0 (0.2-1.3) mg/dL AST 84 H (14-36) U/L ALT 63 H (6-35) U/L Alkaline Phosphatase 102 (38-126) U/L Albumin 5.0 (3.5-5.1) g/dL Urine 12/28/23 Range/Units 12:34 Urine Color Yellow (Yellow) Urine Appearance Clear (Clear) Urine pH 5.0 (5.0-9.0) Ur Specific [place] 1.026 (1.001-1.035) Urine Protein 1+ H (Negative) mg/dL Urine Glucose (UA) Trace H (Negative) mg/dL Impressions Abdomen/Pelvis CT 12/28/23 12:32 IMPRESSION: 1. Acute on chronic interstitial pancreatitis. 2. Diffuse hepatic steatosis. Chest X-Ray 12/28/23 12:38 Impression: 1. Clear lungs. Abdomen Ultrasound 12/28/23 14:00 IMPRESSION: 1. Gallbladder distention, without stones identified. 2. Common bile duct distention. 3. Fatty infiltration of an enlarged liver. 4. Indeterminate focus within the caudate lobe, possibly a flash filling hemangioma, and less likely a arteriovenous malformation. Assessment and Plan Assessment and plan (1) Pancreatitis: Code(s): K85.90 - Acute pancreatitis without necrosis or infection, unspecified Status: Acute (2) Ketoacidosis: Code(s): E87.29 - Other acidosis Status: Acute (3) Elevated LFTs: Code(s): R79.89 - Other specified abnormal findings of blood chemistry Status: Acute (4) Hypertension: Code(s): I10 - Essential (primary) hypertension Status: Acute (5) Alcohol abuse: Code(s): F10.10 - Alcohol abuse, uncomplicated Status: Acute (6) Tobacco dependence: Code(s): F17.200 - Nicotine dependence, unspecified, uncomplicated Status: Acute Plan The patient presented to the emergency department for evaluation of abdominal pain, nausea, and vomiting for the last for 5 days as detailed in HPI. Labs, imaging, EKG, and all reports were personally reviewed. CT scan shows acute on chronic interstitial pancreatitis, likely due to ongoing alcohol use. Continue bowel rest for now. She has been started on IV fluids with dextrose given ketoacidosis due to alcoholism and poor oral intake. Analgesics and antiemetics are available as needed. AST and ALT are mildly elevated, likely due to ongoing alcohol use and fatty liver. Blood pressures have been running quite high but seemed to improve with pain control. Continue antihypertensives and monitor closely. She has not had alcohol for 4 days and is not showing any signs of withdrawal symptoms at this time however will initiate CIWA protocol. She seems motivated to quit drinking and smoking. She declines the need for nicotine patch. Her home medications will be reviewed and resumed as appropriate. Findings and treatment plan were discussed with the patient. Questions were solicited and answered to satisfaction. The patient's medical management will be taken over by the hospitalist team in a.m. Quality VTE Prophylaxis VTE prophylaxis: pharmacologic ordered Hospitalist [facility] Advance Care Plan I have confirmed that the patient's Advanced Care Plan is present, code status is documented, or surrogate decision maker is listed in patient medical record.: Yes Medication Reconciliation I have utilized all available resources to obtain, update and review the patients current medications (includes all prescriptions, OTC, herbals, cannabis, and nutritional supplements).: Yes
--- NOTE | 2023-12-28 15:51 | PC.NURSE ---
1550 attempted to call for questions about report, [facility] states they were unaware of getting a patient and the room is not cleaned yet. They state they will call back when the room is ready.
[2023-12-28 16:55] LABS: Triglycerides 95 mg/dL (<150)
--- NOTE | 2023-12-28 17:10 | ADMGEN ---
This patient, Tari Kern, was admitted to Medical Room 340-01. Patient/family oriented to hospital policies and general routines including ID bracelet, bed and alarms, visiting hours, pain management, procedures, bathroom and other care routines, personal items, smoking policy, room service/diet, and visiting hours. Information on how to activate the Rapid Response Team has been discussed. Patient/Family are encouraged to report perceived risks to care and to ask questions if they do not understand what they are told or what they should do.
[2023-12-28 17:24] LABS: Hemoglobin A1C 5.7 % (<5.7)
[2023-12-28] MEDS: DEXTROSE 5%/0.9% SOD CHL 1,000 ML 100 ML IV CONT (18:00)
[2023-12-28] MEDS: THIAMINE HCL 200 MG/2 ML VIAL 100 MG IV PUSH (18:26)
[2023-12-28] MEDS: LOSARTAN POTASSIUM 50 MG TABLET PO (19:38)
[2023-12-28] MEDS: ATORVASTATIN 20 MG TABLET PO (20:07)
[2023-12-29] MEDS: ACETAMINOPHEN 325 MG TABLET 650 MG PO ×2 (00:30→06:41)
[2023-12-29] MEDS: hydrALAZINE HCL 20 MG/ML VIAL 10 MG IV PUSH (00:30)
[2023-12-29] MEDS: ONDANSETRON INJ 4 MG/2 ML VIAL IV PUSH ×2 (00:31→14:16)
[2023-12-29] MEDS: HYDROmorphone HCL INJ (*CRX) 1 MG/ML SYR IV PUSH ×4 (04:00→19:20)
[2023-12-29] MEDS: LACTATED RINGERS 1,000 ML 100 ML IV CONT ×2 (04:04→14:16)
[2023-12-29 05:02] VITALS: BP 152/86; PULSE 115; RESP 20; TEMP 36.6; O2SAT 97
[2023-12-29 06:07] LABS: Hematocrit 44.6 % (37.0-47.0); Hemoglobin 15.1 g/dL (12.0-15.0); Mean Corpuscular HGB Conc 33.9 g/dl (32-36); Mean Corpuscular Hemoglobin 32.4 pg (26-34); Mean Corpuscular Volume 95.7 fl (80-100); Mean Platelet Volume 10.9 fl (7.4-10.4); Platelet Count Result 137 k/mm3 (150-375); Red Blood Count 4.66 M/mm3 (4.2-5.4); White Blood Count 10.7 K/mm3 (4.5-10.0)
[2023-12-29 06:15] LABS: Alanine Aminotransferase 43 U/L (6-35); Albumin Level 4.2 g/dL (3.5-5.1); Alkaline Phosphatase 90 U/L (38-126); Anion Gap 8 mmol/L (4-12); Aspartate Amino Transferase 67 U/L (14-36); Bilirubin,Total 0.8 mg/dL (0.2-1.3); Blood Urea Nitrogen 9 mg/dL (7-17); Calcium 9.2 mg/dL (8.4-10.2); Carbon Dioxide 19 mmol/L (22-30); Chloride 103 mmol/L (98-107); Estimated CRCL calculation 98 ml/min; Estimated Glomerular Filt Rate > 60; Glucose 179 mg/dL (65-110); Lipase 1706 U/L (23-300); Magnesium 1.6 mg/dL (1.6-2.3); Potassium 3.4 mmol/L (3.4-5.0); Sodium 130 mmol/L (137-145)
--- NOTE | 2023-12-29 08:20 | PM.IMPN ---
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 Continue bowel rest for now. IV fluids with dextrose given ketoacidosis due to alcoholism and poor oral intake- stopped an switched to LR-will continue Analgesics and antiemetics are available as needed. AST and ALT are mildly elevated (alcohol use and fatty liver) - will see if pt [facility]- if not - will add consult and pt will need to f/u outpt. (2) Elevated LFTs: Code(s): R79.89 - Other specified abnormal findings of blood chemistry Status: Acute (3) Hypertension: Code(s): I10 - Essential (primary) hypertension Status: Acute (4) Alcohol abuse: Code(s): F10.10 - Alcohol abuse, uncomplicated Status: Acute Assessment and Plan: She has not had alcohol for 4 days and is not showing any signs of withdrawal symptoms at this time however will initiate CIWA protocol. She seems motivated to quit drinking and smoking. (5) Tobacco dependence: Code(s): F17.200 - Nicotine dependence, unspecified, uncomplicated Status: Acute Assessment and Plan: counselling completed Plan dvt prophylaxis: lonenox Time Spent With Patient Time with patient: Greater than 35 minutes Subjective Date/time seen: 12/29/23 08:20 Interval history: This is a 63-year-old female smoker with history of alcohol abuse, pancreatitis, hypertension, hyperlipidemia, obstructive sleep apnea admitted from home for evaluation of abdominal pain. In the ED: Blood pressure was 207/112 on arrival but has improved with pain control. She has been intermittently tachycardic in the low 100s, and a sinus rhythm. The remainder of her vital signs are stable. Labs are significant for WBC count of 10.1, hemoglobin 15.5, carbon dioxide 15, anion gap 18, BUN 12, creatinine 0.60, calcium 10.6, AST 84, ALT 63, lipase 7501. Urinalysis was positive for 1+ protein, trace glucose, and 4+ ketones. Ethyl alcohol level was undetectable. CT of the abdomen and pelvis showed acute on chronic interstitial pancreatitis and diffuse hepatic steatosis. Right upper quadrant ultrasound showed gallbladder distention without stones and common bile duct distension with fatty infiltration of an enlarged liver. She was given fluids, antiemetics, and analgesics. 12/28- pt is seen and examined. she is still nauseated. Pain is controlled with iv pain med. She is determined to quit drinking and smoking to improve her health. Review of Systems Review of Systems: 12 systems were reviewed and are negative except for as per HPI. Exam Narrative: General: Well-developed, mildly ill-appearing female supine in bed in moderate pain. Weight: 70.4 kg. BMI: 29.7. HEENT: PERRL, EOMI. Sclera anicteric. Conjunctiva mildly injected. Tacky mucous membranes. Neck: Supple. Respiratory: Lungs are clear to auscultation bilaterally. Cardiovascular: Tachycardic with normal S1-S2. Gastrointestinal: Abdomen is soft and perhaps slightly distended with positive bowel sounds. She is tender to palpation throughout the periumbilical region but more so in the left upper quadrant. No guarding or rebound tenderness. Skin: Warm and dry. No rash or lesions on limited exam. Extremities: No cyanosis, clubbing, or edema. Radial and pedal pulses intact. Neurological: Alert and oriented. Cranial nerves 2-12 are grossly intact. No tremors. No gross focal deficits to casual conversation. Psychiatric: Pleasant and cooperative with appropriate mood and affect. Objective Data Vital Signs Vital Signs: Vital Signs - 24 hr 12/28/23 10:27 12/28/23 10:46 12/28/23 11:16 Temperature 97.6 F Pulse Rate 103 H 100 102 H Respiratory Rate 25 H 26 H 21 H Blood Pressure 207/112 H 182/126 H 209/111 H Pulse Oximetry 99 100 100 Oxygen Delivery Room Air 12/28/23 11:46 12/28/23 13:26 12/28/23 12:01 Temperature Pulse Rate 89 97 100 Respiratory Rate 18 20 21 H Blood Pressure 165/116 H 200/103 H 208/112 H Pulse Oximetry 100 98 98 Oxygen Delivery 12/28/23 13:26 12/28/23 13:31 12/28/23 14:01 Temperature Pulse Rate 99 93 95 Respiratory Rate 20 16 19 Blood Pressure 200/103 H 186/115 H 173/88 H Pulse Oximetry 98 100 97 Oxygen Delivery 12/28/23 14:16 12/28/23 14:31 12/28/23 15:03 Temperature Pulse Rate 95 95 102 H Respiratory Rate 20 20 30 H Blood Pressure 203/114 H 198/110 H 185/103 H Pulse Oximetry 97 98 99 Oxygen Delivery 12/28/23 19:38 12/28/23 23:31 12/29/23 05:02 Temperature 97.1 F L 97.9 F 98 F Pulse Rate 103 H 110 H 115 H Respiratory Rate 22 H 20 20 Blood Pressure 193/106 H 175/101 H 152/86 H Pulse Oximetry 97 97 97 Oxygen Delivery Intake/Output Intake/Output: Intake & Output 12/26/23 12/27/23 12/28/23 12/29/23 23:59 23:59 23:59 23:59 Intake Total 3100 0 Balance 3100 0 Meds/Results Medications: Active Medications Generic Name Dose Route Start Last Admin Trade Name Freq PRN Reason Stop Dose Admin Acetaminophen 650 mg 12/28/23 16:32 12/29/23 06:41 Acetaminophen 325 Mg Tablet PO 650 mg Q6H PRN Administration Mild Pain (1-3) or Fever Atorvastatin Calcium 20 mg 12/28/23 21:00 12/28/23 20:07 Atorvastatin 20 Mg Tablet PO 20 mg QHS PACO Administration Chlordiazepoxide HCl 10 mg 12/28/23 16:32 Chlordiazepoxide (*Crx) 10 Mg Capsule PO Q8H PRN withdrawal symptoms & CIWA < 8 Enoxaparin Sodium 40 mg 12/29/23 09:00 Enoxaparin 40 Mg/0.4 Ml Syringe SUB-Q DAILY PACO Hydralazine HCl 10 mg 12/28/23 23:44 12/29/23 00:30 Hydralazine Hcl 20 Mg/Ml Vial IV PUSH 10 mg Q6H PRN Administration SBP > 165 or DBP > 105 Hydromorphone HCl 0.5 mg 12/28/23 16:32 Hydromorphone Hcl Inj (*Crx) 1 Mg/Ml Syr IV PUSH Q3H PRN Pain Rated 4-6 Hydromorphone HCl 1 mg 12/28/23 18:07 12/29/23 04:00 Hydromorphone Hcl Inj (*Crx) 1 Mg/Ml Syr IV PUSH 1 mg Q3H PRN Administration Pain Rated 7-10 Lactated Ringer's 1,000 mls @ 100 mls/hr 12/29/23 03:00 12/29/23 04:04 Lr - Lactated Ringers Iv IV CONT 100 mls/hr .Q10H PACO Administration Lorazepam 1 mg 12/28/23 16:32 Lorazepam Inj (*Crx) 2 Mg/Ml Vial IV PUSH Q2H PRN CIWA 8-15 Lorazepam 2 mg 12/28/23 16:32 Lorazepam Inj (*Crx) 2 Mg/Ml Vial IV PUSH Q2H PRN CIWA > 15 Losartan Potassium 50 mg 12/28/23 18:19 12/28/23 19:38 Losartan Potassium 50 Mg Tablet PO 50 mg DAILY PACO Administration Ondansetron HCl 4 mg 12/28/23 16:32 12/29/23 00:31 Ondansetron Inj 4 Mg/2 Ml Vial IV PUSH 4 mg Q6H PRN Administration Nausea And Vomiting Thiamine HCl 100 mg 12/28/23 16:35 12/28/23 18:18 Thiamine Hcl 100 Mg Tablet PO Not Given QAM PACO Radiology Results: ITS Impressions Abdomen/Pelvis CT 12/28/23 12:32 IMPRESSION: 1. Acute on chronic interstitial pancreatitis. 2. Diffuse hepatic steatosis. Chest X-Ray 12/28/23 12:38 Impression: Clear lungs. Abdomen Ultrasound 12/28/23 14:00 IMPRESSION: Gallbladder distention, without stones identified Common bile duct distention. Fatty infiltration of an enlarged liver. Indeterminate focus within the caudate lobe, possibly a flash filling hemangioma, and less likely a arteriovenous malformation. Labs Labs: Laboratory Results - last 24 hr 12/28/23 12/28/23 12/28/23 11:34 11:44 12:34 WBC 10.1 H RBC 4.77 Hgb 15.5 H Hct 46.9 MCV 98.3 MCH 32.5 MCHC 33.0 RDW 13.2 Plt Count 155 MPV 10.0 Immature Gran % (Auto) 0.3 Neut % (Auto) 86.1 H Lymph % (Auto) 8.1 L [place] % (Auto) 5.3 Eos % (Auto) 0.0 Baso % (Auto) 0.2 Lymph # (Auto) 0.82 L [place] # (Auto) 0.5 Eos # (Auto) 0.0 Baso # (Auto) 0.0 Abs Immat Gran (auto) 0.03 Absolute Neuts (auto) 8.7 H Absolute Nucleated RBC 0.000 Nucleated RBC % 0.0 Sodium 138 Potassium 4.0 Chloride 105 Carbon Dioxide 15 L Anion Gap 18 H BUN 12 Creatinine 0.60 L Estim Creat Clear Calc 83 Estimated GFR > 60 Glucose 172 H Hemoglobin A1c 5.7 Calcium 10.6 H Phosphorus 3.4 Magnesium 1.8 Total Bilirubin 1.0 AST 84 H ALT 63 H Alkaline Phosphatase 102 Total Protein 8.0 Albumin 5.0 Triglycerides 95 Lipase 7501 H Urine Color Yellow Urine Appearance Clear Urine pH 5.0 Ur Specific [place] 1.026 Urine Protein 1+ H Urine Glucose (UA) Trace H Urine Ketones 4+ H Ur Blood (Man) Negative Urine Nitrate Negative Urine Bilirubin Negative Urine Urobilinogen 0.2 Leukocyte Esterase Rfl Negative Urine RBC 0-2 Urine WBC 0-5 Ur Squamous Epith Cells None seen Urine Bacteria None seen Urine Casts 3-5 Urine Opiates Screen Negative Urine Methadone Screen Negative Ur Barbiturates Screen Negative Ur Phencyclidine Scrn Negative Ur Amphetamine Screen Negative U Benzodiazepines Scrn Negative Urine Cocaine Screen Negative U Cannabinoids Screen Negative Ethyl Alcohol < 10 Influenza A (RT-PCR) Negative Influenza B (RT-PCR) Negative RSV (RT-PCR) Negative SARS-CoV-2 RNA (RT-PCR) Negative 12/29/23 05:19 WBC 10.7 H RBC 4.66 Hgb 15.1 H Hct 44.6 MCV 95.7 MCH 32.4 MCHC 33.9 RDW 13.0 Plt Count 137 L MPV 10.9 H Immature Gran % (Auto) Neut % (Auto) Lymph % (Auto) [place] % (Auto) Eos % (Auto) Baso % (Auto) Lymph # (Auto) [place] # (Auto) Eos # (Auto) Baso # (Auto) Abs Immat Gran (auto) Absolute Neuts (auto) Absolute Nucleated RBC Nucleated RBC % Sodium 130 L Potassium 3.4 Chloride 103 Carbon Dioxide 19 L Anion Gap 8 BUN 9 Creatinine 0.50 L Estim Creat Clear Calc 98 Estimated GFR > 60 Glucose 179 H Hemoglobin A1c Calcium 9.2 Phosphorus Magnesium 1.6 Total Bilirubin 0.8 AST 67 H ALT 43 H Alkaline Phosphatase 90 Total Protein 7.0 Albumin 4.2 Triglycerides Lipase 1706 H Urine Color Urine Appearance Urine pH Ur Specific [place] Urine Protein Urine Glucose (UA) Urine Ketones Ur Blood (Man) Urine Nitrate Urine Bilirubin Urine Urobilinogen Leukocyte Esterase Rfl Urine RBC Urine WBC Ur Squamous Epith Cells Urine Bacteria Urine Casts Urine Opiates Screen Urine Methadone Screen Ur Barbiturates Screen Ur Phencyclidine Scrn Ur Amphetamine Screen U Benzodiazepines Scrn Urine Cocaine Screen U Cannabinoids Screen Ethyl Alcohol Influenza A (RT-PCR) Influenza B (RT-PCR) RSV (RT-PCR) SARS-CoV-2 RNA (RT-PCR) Quality VTE Prophylaxis VTE prophylaxis: pharmacologic ordered
[2023-12-29 08:57] VITALS: O2SAT 95
[2023-12-29 09:30] VITALS: RESP 20
[2023-12-29] MEDS: LOSARTAN POTASSIUM 50 MG TABLET PO (09:30)
[2023-12-29] MEDS: ENOXAPARIN 40 MG/0.4 ML SYRINGE SUB-Q (09:30)
[2023-12-29] MEDS: THIAMINE HCL 100 MG TABLET PO (09:31)
[2023-12-29 14:00] VITALS: BP 126/81; PULSE 109; RESP 20; TEMP 36.2; O2SAT 98
[2023-12-29 19:45] VITALS: BP 104/70; PULSE 103; RESP 18; TEMP 36.9; O2SAT 97
[2023-12-29] MEDS: ATORVASTATIN 20 MG TABLET PO (20:06)
[2023-12-30] MEDS: LACTATED RINGERS 1,000 ML 100 ML IV CONT ×3 (00:14→22:33)
[2023-12-30] MEDS: ACETAMINOPHEN 325 MG TABLET 650 MG PO (00:14)
[2023-12-30] MEDS: HYDROmorphone HCL INJ (*CRX) 1 MG/ML SYR IV PUSH ×2 (04:17→22:32)
[2023-12-30 04:19] VITALS: BP 148/84; PULSE 91; RESP 18; TEMP 36.9; O2SAT 97
--- NOTE | 2023-12-30 08:55 | P.PNIM_ITS ---
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 Continue bowel rest for now. IV fluids with dextrose given ketoacidosis due to alcoholism and poor oral intake- stopped an switched to LR-will continue Analgesics and antiemetics are available as needed. AST and ALT are mildly elevated (alcohol use and fatty liver) - will see if pt is following with GI- if not - will add consult and pt will need to f/u outpt. -12/29- advance diet today try to avoid IV pain med will add norco if needed (2) Elevated LFTs: Code(s): R79.89 - Other specified abnormal findings of blood chemistry Status: Acute (3) Hypertension: Code(s): I10 - Essential (primary) hypertension Status: Acute (4) Alcohol abuse: Code(s): F10.10 - Alcohol abuse, uncomplicated Status: Acute Assessment and Plan: She has not had alcohol for 4 days and is not showing any signs of withdrawal symptoms at this time however will initiate CIWA protocol. She seems motivated to quit drinking and smoking. (5) Tobacco dependence: Code(s): F17.200 - Nicotine dependence, unspecified, uncomplicated Status: Acute Assessment and Plan: counselling completed Plan dvt prophylaxis: lonenox Time Spent With Patient Time with patient: Greater than 35 minutes Subjective Date/time seen: 12/30/23 08:55 Interval history: This is a 63-year-old female smoker with history of alcohol abuse, pancreatitis, hypertension, hyperlipidemia, obstructive sleep apnea admitted from home for evaluation of abdominal pain. In the ED: Blood pressure was 207/112 on arrival but has improved with pain control. She has been intermittently tachycardic in the low 100s, and a sinus rhythm. The remainder of her vital signs are stable. Labs are significant for WBC count of 10.1, hemoglobin 15.5, carbon dioxide 15, anion gap 18, BUN 12, creatinine 0.60, calcium 10.6, AST 84, ALT 63, lipase 7501. Urinalysis was positive for 1+ protein, trace glucose, and 4+ ketones. Ethyl alcohol level was undetectable. CT of the abdomen and pelvis showed acute on chronic interstitial pancreatitis and diffuse hepatic steatosis. Right upper quadrant ultrasound showed gallbladder distention without stones and common bile duct distension with fatty infiltration of an enlarged liver. She was given fluids, antiemetics, and analgesics. 12/28- pt is seen and examined. she is still nauseated. Pain is controlled with iv pain med. She is determined to quit drinking and smoking to improve her health. 12/29- pt is seen and examined. still somewhat nauseated but was able to fang erated some juice. will try to advance diet today. Review of Systems Review of Systems: 12 systems were reviewed and are negativ e except for as per HPI. Exam Narrative: General: Well-developed, mildly ill-appearing female supine in bed in moderate pain. Weight: 70.4 kg. BMI: 29.7. HEENT: PERRL, EOMI. Sclera anicteric. Conjunctiva mildly injected. Tacky mucous membranes. Neck: Supple. Respiratory: Lungs are clear to auscultation bilaterally. Cardiovascular: Tachycardic with normal S1-S2. Gastrointestinal: Abdomen is soft and perhaps slightly distended with positive bowel sounds. She is tender to palpation throughout the periumbilical region but more so in the left upper quadrant. No guarding or rebound tenderness. Skin: Warm and dry. No rash or lesions on limited exam. Extremities: No cyanosis, clubbing, or edema. Radial and pedal pulses intact. Neurological: Alert and oriented. Cranial nerves 2-12 are grossly intact. No tremors. No gross focal deficits to casual conversation. Psychiatric: Pleasant and cooperative with appropriate mood and affect. Objective Data Vital Signs Vital Signs: Vital Signs - 24 hr 12/29/23 08:57 12/29/23 14:00 12/29/23 09:30 Temperature 97.1 F L Pulse Rate 109 H Respiratory Rate 20 20 Blood Pressure 126/81 Pulse Oximetry 95 98 Oxygen Delivery Room Air Room Air Fraction of Inspired Oxygen 21 12/29/23 19:45 12/30/23 04:19 Temperature 98.4 F 98.4 F Pulse Rate 103 H 91 Respiratory Rate 18 18 Blood Pressure 104/70 148/84 H Pulse Oximetry 97 97 Oxygen Delivery Fraction of Inspired Oxygen Intake/Output Intake/Output: Intake & Output 12/27/23 12/28/23 12/29/23 12/30/23 23:59 23:59 23:59 23:59 Intake Total 3100 1000 1046.7 Balance 3100 1000 1046.7 Meds/Results Medications: Active Medications Generic Name Dose Route Start Last Admin Trade Name Freq PRN Reason Stop Dose Admin Acetaminophen 650 mg 12/28/23 16:32 12/30/23 00:14 Acetaminophen 325 Mg Tablet PO 650 mg Q6H PRN Administration Mild Pain (1-3) or Fever Atorvastatin Calcium 20 mg 12/28/23 21:00 12/29/23 20:06 Atorvastatin 20 Mg Tablet PO 20 mg QHS PACO Administration Chlordiazepoxide HCl 10 mg 12/28/23 16:32 Chlordiazepoxide (*Crx) 10 Mg Capsule PO Q8H PRN withdrawal symptoms & CIWA < 8 Enoxaparin Sodium 40 mg 12/29/23 09:00 12/29/23 09:30 Enoxaparin 40 Mg/0.4 Ml Syringe SUB-Q 40 mg DAILY PACO Administration Hydralazine HCl 10 mg 12/28/23 23:44 12/29/23 00:30 Hydralazine Hcl 20 Mg/Ml Vial IV PUSH 10 mg Q6H PRN Administration SBP > 165 or DBP > 105 Hydromorphone HCl 0.5 mg 12/28/23 16:32 Hydromorphone Hcl Inj (*Crx) 1 Mg/Ml Syr IV PUSH Q3H PRN Pain Rated 4-6 Hydromorphone HCl 1 mg 12/28/23 18:07 12/30/23 04:17 Hydromorphone Hcl Inj (*Crx) 1 Mg/Ml Syr IV PUSH 1 mg Q3H PRN Administration Pain Rated 7-10 Lactated Ringer's 1,000 mls @ 100 mls/hr 12/29/23 03:00 12/30/23 00:14 Lr - Lactated Ringers Iv IV CONT 100 mls/hr .Q10H PACO Administration Lorazepam 1 mg 12/28/23 16:32 Lorazepam Inj (*Crx) 2 Mg/Ml Vial IV PUSH Q2H PRN CIWA 8-15 Lorazepam 2 mg 12/28/23 16:32 Lorazepam Inj (*Crx) 2 Mg/Ml Vial IV PUSH Q2H PRN CIWA > 15 Losartan Potassium 50 mg 12/28/23 18:19 12/29/23 09:30 Losartan Potassium 50 Mg Tablet PO 50 mg DAILY APCO Administration Ondansetron HCl 4 mg 12/28/23 16:32 12/29/23 14:16 Ondansetron Inj 4 Mg/2 Ml Vial IV PUSH 4 mg Q6H PRN Administration Nausea And Vomiting Thiamine HCl 100 mg 12/28/23 16:35 12/29/23 09:31 Thiamine Hcl 100 Mg Tablet PO 100 mg QAM PACO Administration Radiology Results: ITS Impressions Abdomen/Pelvis CT 12/28/23 12:32 IMPRESSION: 1. Acute on chronic interstitial pancreatitis. 2. Diffuse hepatic steatosis. Chest X-Ray 12/28/23 12:38 Impression: Clear lungs. Abdomen Ultrasound 12/28/23 14:00 IMPRESSION: Gallbladder distention, without stones identified Common bile duct distention. Fatty infiltration of an enlarged liver. Indeterminate focus within the caudate lobe, possibly a flash filling hemangioma, and less likely a arteriovenous malformation. Quality VTE Prophylaxis VTE prophylaxis: pharmacologic ordered
[2023-12-30 09:20] VITALS: O2SAT 97
[2023-12-30] MEDS: ENOXAPARIN 40 MG/0.4 ML SYRINGE SUB-Q (09:20)
[2023-12-30] MEDS: THERAPEUTIC MULTIVITAMINS/MINERALS TAB (*BKC) 1 TABLET PO (09:21)
[2023-12-30] MEDS: LOSARTAN POTASSIUM 50 MG TABLET PO (09:21)
[2023-12-30] MEDS: FOLIC ACID 1 MG TABLET PO (09:21)
[2023-12-30] MEDS: THIAMINE HCL 100 MG TABLET PO (09:21)
[2023-12-30] MEDS: HYDROcodone/acetaminophen (*CRX) 5-325 MG TABLET 1 TAB PO ×3 (11:21→20:41)
[2023-12-30] MEDS: NICOTINE (*PBKC) 7 MG PATCH 1 PATCH TRANSDERM (12:33)
[2023-12-30 14:06] VITALS: BP 128/77; PULSE 107; RESP 16; TEMP 36.9; O2SAT 94
[2023-12-30] MEDS: ATORVASTATIN 20 MG TABLET PO (20:41)
[2023-12-30 20:55] VITALS: BP 146/94; PULSE 100; RESP 20; TEMP 37; O2SAT 100
[2023-12-30] MEDS: ONDANSETRON INJ 4 MG/2 ML VIAL IV PUSH (22:32)
[2023-12-31 06:00] VITALS: BP 143/86; PULSE 84; RESP 20; TEMP 37; O2SAT 95
[2023-12-31] MEDS: ENOXAPARIN 40 MG/0.4 ML SYRINGE SUB-Q (10:03)
[2023-12-31] MEDS: LACTATED RINGERS 1,000 ML 100 ML IV CONT ×2 (10:03→18:57)
[2023-12-31] MEDS: FOLIC ACID 1 MG TABLET PO (10:04)
[2023-12-31] MEDS: NICOTINE (*PBKC) 7 MG PATCH 1 PATCH TRANSDERM (10:04)
[2023-12-31] MEDS: THERAPEUTIC MULTIVITAMINS/MINERALS TAB (*BKC) 1 TABLET PO (10:04)
[2023-12-31] MEDS: THIAMINE HCL 100 MG TABLET PO (10:05)
[2023-12-31] MEDS: LOSARTAN POTASSIUM 50 MG TABLET PO (10:05)
[2023-12-31] MEDS: HYDROcodone/acetaminophen (*CRX) 5-325 MG TABLET 1 TAB PO ×3 (10:08→20:46)
[2023-12-31 11:36] VITALS: BMI 32.1
--- NOTE | 2023-12-31 12:26 | PM.IMPN ---
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 Continue bowel rest for now. IV fluids with dextrose given ketoacidosis due to alcoholism and poor oral intake- stopped an switched to LR-will continue Analgesics and antiemetics are available as needed. AST and ALT are mildly elevated (alcohol use and fatty liver) - will see if pt is following with GI- if not - will add consult and pt will need to f/u outpt. -12/29- advance diet today try to avoid IV pain med will add norco if needed (2) Elevated LFTs: Code(s): R79.89 - Other specified abnormal findings of blood chemistry Status: Acute Assessment and Plan: trend labs will need fibroscan outpt will see GI while here and will need a follow up once discharged (3) Hypertension: Code(s): I10 - Essential (primary) hypertension Status: Acute (4) Alcohol abuse: Code(s): F10.10 - Alcohol abuse, uncomplicated Status: Acute Assessment and Plan: She has not had alcohol for 4 days and is not showing any signs of withdrawal symptoms at this time however will initiate CIWA protocol. She seems motivated to quit drinking and smoking. (5) Tobacco dependence: Code(s): F17.200 - Nicotine dependence, unspecified, uncomplicated Status: Acute Assessment and Plan: counselling completed Plan dvt prophylaxis: lonenox Time Spent With Patient Time with patient: Greater than 35 minutes Subjective Date/time seen: 12/31/23 12:26 Interval history: This is a 63-year-old female smoker with history of alcohol abuse, pancreatitis, hypertension, hyperlipidemia, obstructive sleep apnea admitted from home for evaluation of abdominal pain. In the ED: Blood pressure was 207/112 on arrival but has improved with pain control. She has been intermittently tachycardic in the low 100s, and a sinus rhythm. The remainder of her vital signs are stable. Labs are significant for WBC count of 10.1, hemoglobin 15.5, carbon dioxide 15, anion gap 18, BUN 12, creatinine 0.60, calcium 10.6, AST 84, ALT 63, lipase 7501. Urinalysis was positive for 1+ protein, trace glucose, and 4+ ketones. Ethyl alcohol level was undetectable. CT of the abdomen and pelvis showed acute on chronic interstitial pancreatitis and diffuse hepatic steatosis. Right upper quadrant ultrasound showed gallbladder distention without stones and common bile duct distension with fatty infiltration of an enlarged liver. She was given fluids, antiemetics, and analgesics. 12/28- pt is seen and examined. she is still nauseated. Pain is controlled with iv pain med. She is determined to quit drinking and smoking to improve her health. 12/29- pt is seen and examined. still somewhat nauseated but was able to tolerated some juice. will try to advance diet today. 12/30- pt is somewhat better with nausea but still pain- will consult GI- i don;t think there any acute urgent interventions need sot be done but at least, she will establish with GI to f/u as outpt. Try to advance today. Anticipate discharge home tomorrow if stable overnight. Review of Systems Constitutional: Constitutional: Denies chills Cardiovascular: Cardiovascular: Denies chest pain Respiratory: Respiratory: Denies cough Gastrointestinal: Gastrointestinal: Reports abdominal pain and Reports nausea Exam Narrative: General: Well-developed, alert. HEENT: PERRL, EOMI. Sclera anicteric. Conjunctiva mildly injected. Tacky mucous membranes. Neck: Supple. Respiratory: Lungs are clear to auscultation bilaterally. Cardiovascular: Tachycardic with normal S1-S2. Gastrointestinal: Abdomen is soft and perhaps slightly distended with positive bowel sounds. She is tender to palpation throughout the periumbilical region but more so in the left upper quadrant. No guarding or rebound tenderness. Skin: Warm and dry. No rash or lesions on limited exam. Extremities: No cyanosis, clubbing, or edema. Radial and pedal pulses intact. Neurological: Alert and oriented. Cranial nerves 2-12 are grossly intact. No tremors. No gross focal deficits to casual conversation. Psychiatric: Pleasant and cooperative with appropriate mood and affect. Objective Data Vital Signs Vital Signs: Vital Signs - 24 hr 12/30/23 14:06 12/30/23 20:55 12/31/23 06:00 Temperature 98.4 F 98.6 F 98.6 F Pulse Rate 107 H 100 84 Respiratory Rate 16 20 20 Blood Pressure 128/77 146/94 H 143/86 H Pulse Oximetry 94 100 95 Intake/Output Intake/Output: Intake & Output 12/28/23 12/29/23 12/30/23 12/31/23 23:59 23:59 23:59 23:59 Intake Total 3100 1000 3456.7 1740 Balance 3100 1000 3456.7 1740 Meds/Results Medications: Active Medications Generic Name Dose Route Start Last Admin Trade Name Freq PRN Reason Stop Dose Admin Acetaminophen 650 mg 12/28/23 16:32 12/30/23 00:14 Acetaminophen 325 Mg Tablet PO 650 mg Q6H PRN Administration Mild Pain (1-3) or Fever Hydrocodone Bitart/Acetaminophen 1 tab 12/30/23 10:49 12/31/23 10:08 Hydrocodone/Acetaminophen (*Crx) 5-325 Mg Tablet PO 1 tab Q4H PRN Administration Pain Rated 4-6 Atorvastatin Calcium 20 mg 12/28/23 21:00 12/30/23 20:41 Atorvastatin 20 Mg Tablet PO 20 mg QHS PACO Administration Chlordiazepoxide HCl 10 mg 12/28/23 16:32 Chlordiazepoxide (*Crx) 10 Mg Capsule PO Q8H PRN withdrawal symptoms & CIWA < 8 Enoxaparin Sodium 40 mg 12/29/23 09:00 12/31/23 10:03 Enoxaparin 40 Mg/0.4 Ml Syringe SUB-Q 40 mg DAILY PACO Administration Folic Acid 1 mg 12/30/23 09:10 12/31/23 10:04 Folic Acid 1 Mg Tablet PO 1 mg DAILY PACO Administration Hydralazine HCl 10 mg 12/28/23 23:44 12/29/23 00:30 Hydralazine Hcl 20 Mg/Ml Vial IV PUSH 10 mg Q6H PRN Administration SBP > 165 or DBP > 105 Hydromorphone HCl 0.5 mg 12/28/23 16:32 Hydromorphone Hcl Inj (*Crx) 1 Mg/Ml Syr IV PUSH Q3H PRN Pain Rated 4-6 Hydromorphone HCl 1 mg 12/28/23 18:07 12/30/23 22:32 Hydromorphone Hcl Inj (*Crx) 1 Mg/Ml Syr IV PUSH 1 mg Q3H PRN Administration Pain Rated 7-10 Lactated Ringer's 1,000 mls @ 100 mls/hr 12/29/23 03:00 12/31/23 10:03 Lr - Lactated Ringers Iv IV CONT 100 mls/hr .Q10H PACO Administration Lorazepam 1 mg 12/28/23 16:32 Lorazepam Inj (*Crx) 2 Mg/Ml Vial IV PUSH Q2H PRN CIWA 8-15 Lorazepam 2 mg 12/28/23 16:32 Lorazepam Inj (*Crx) 2 Mg/Ml Vial IV PUSH Q2H PRN CIWA > 15 Losartan Potassium 50 mg 12/28/23 18:19 12/31/23 10:05 Losartan Potassium 50 Mg Tablet PO 50 mg DAILY PACO Administration Multivitamins/Calcium 1 tablet 12/30/23 09:10 12/31/23 10:04 Therapeutic Multivitamins/Minerals Tab (*Bkc) PO 1 tablet QAM PACO Administration Nicotine 1 patch 12/30/23 12:00 12/31/23 10:04 Nicotine (*Pbkc) 7 Mg Patch TRANSDERM 1 patch DAILY PACO Administration Ondansetron HCl 4 mg 12/28/23 16:32 12/30/23 22:32 Ondansetron Inj 4 Mg/2 Ml Vial IV PUSH 4 mg Q6H PRN Administration Nausea And Vomiting Thiamine HCl 100 mg 12/28/23 16:35 12/31/23 10:05 Thiamine Hcl 100 Mg Tablet PO 100 mg QAM PACO Administration Radiology Results: ITS Impressions Abdomen/Pelvis CT 12/28/23 12:32 IMPRESSION: 1. Acute on chronic interstitial pancreatitis. 2. Diffuse hepatic steatosis. Chest X-Ray 12/28/23 12:38 Impression: Clear lungs. Abdomen Ultrasound 12/28/23 14:00 IMPRESSION: Gallbladder distention, without stones identified Common bile duct distention. Fatty infiltration of an enlarged liver. Indeterminate focus within the caudate lobe, possibly a flash filling hemangioma, and less likely a arteriovenous malformation. Quality VTE Prophylaxis VTE prophylaxis: pharmacologic ordered
--- NOTE | 2023-12-31 13:17 | WPDGICN ---
Assessment and Plan Assessment and plan (1) Alcoholic pancreatitis: Code(s): K85.20 - Alcohol induced acute pancreatitis without necrosis or infection <Maria M Marie APRN - Last Filed: 12/31/23 13:50> Status: Acute <Maria M Marie APRN - Last Filed: 12/31/23 13:50> (2) Chronic pancreatitis: Code(s): K86.1 - Other chronic pancreatitis <Maria M Marie REGIONAL BUSINESS MANAGER - Last Filed: 12/31/23 13:50> Status: Acute <Maria M Marie APRN - Last Filed: 12/31/23 13:50> (3) Elevated LFTs: Code(s): R79.89 - Other specified abnormal findings of blood chemistry <Maria M Marie APRN - Last Filed: 12/31/23 13:50> Status: Acute <Maria M Marie APRN - Last Filed: 12/31/23 13:50> (4) Alcohol abuse: Code(s): F10.10 - Alcohol abuse, uncomplicated <Maria M Marie APRN - Last Filed: 12/31/23 13:50> Status: Acute <Maria M Marie APRN - Last Filed: 12/31/23 13:50> (5) Tobacco dependence: Code(s): F17.200 - Nicotine dependence, unspecified, uncomplicated <Maria M Marie APRN - Last Filed: 12/31/23 13:50> Status: Acute <Maria M Marie APRN - Last Filed: 12/31/23 13:50> (6) Alcoholic fatty liver: Code(s): K70.0 - Alcoholic fatty liver <Maria M Marie, REGIONAL BUSINESS MANAGER - Last Filed: 12/31/23 13:50> Status: Acute <Maria M Marie APRN - Last Filed: 12/31/23 13:50> Assessment and Plan: Acute on Chronic Pancreatitis with epigastric abdominal pain, nausea and Vomiting/Abnormal Imaging-Biliary and Liver: CT on admission with acute on chronic pancreatitis with no evidence of necrosis, abscess or cyst. She has been here 4 days and has been improving and just tolerated a full liquid diet with no worsening abdominal pain or nausea or vomiting. LFTs are in a hepatocellular pattern with no evidence of concerns of choledocholithiasis. Gallbladder ultrasound with no gallstones although there was some mild common bile duct dilation measuring 8.8 mm and intermediate lesion with caudate lobe hemangioma vs. AVM. Acute pancreatitis secondary to alcohol abuse, was drinking pt and half of vodka daily leading up to admission and prior to that was drinking 3-4 shots in her coffee daily. She has had an evidence of acute pancreatitis in 2019 as well. She had Dextrose fluids with admission and has been on LR 100mL/hr since the . She had pain medication this AM. -Continue to advance diet as tolerated -Will repeat CBC/CMP and CRP, has not had labs in 2 days -Supportive Tx. If able try to avoid Narcotics now that she is improving. - Continue IV fluids -Alcohol and smoking cessation highly encouraged. She is motivated - Consider MRI Liver and MRCP to assess abnormal on caudate lobe and mild CBD dilation. -F/u outpatient Alcoholic Fatty Liver Disease: Has diffuse hepatic steatosis on US, likely combination of alcohol and obesity. AST and ALT mildly elevated on admission and slowly improving. No concerns for acute alcoholic hepatitis. -Acute hepatitis Panel -alcohol cessation advised -consider FibroScan outpatient -F/u outpatient <Maria M Marie APRN - Last Filed: 12/31/23 13:50> GI Consult Note Consult date/time: 12/31/23 13:17 <Maria M Marie APRN - Last Filed: 12/31/23 13:50> Reason for consult: I have reviewed our nurse practitioner's note, examined the patient and pertinent laboratory data. We have discussed the plan extensively and agreed with was stated in the note. This is the 2nd episode of alcohol related pancreatitis in this patient. She was actively drinking up until a few days before her admission.He was admitted 3 days ago with severe abdominal pain, and a marked increase in lipase levels. She has been tolerating a full liquid diet although her pain is not completely resolved and is still requiring some narcotics. There are no clinical or imaging evidence of necrosis. However, there is an slight to moderate increase in her transaminase levels in 48 hours. This could be due to pancreatic edema and some compression of the common bile duct, however an MRCP, which we ordered this afternoon, will help clarifying better the his rather abrupt increase in transaminases. Continue administering intravenous fluids and analgesics p.r.n., however it will be ideal to avoid narcotics. She does have steatotic liver disease secondary to obesity and, mainly to alcohol abuse. Which suggest managing her as an outpatient with proper counseling, and will be glad to pay attention to her liver problem, and rule out liver fibrosis /cirrhosis. Ideally , when discharged, she should be on a pancreatic enzyme regimen given her evidence of chronic pancreatitis, recently exacerbated <Nima Sparks MD - Last Filed: 12/31/23 17:22> HPI: This is a pleasant 63-year-old female with a past medical surgical history of pancreatitis, hypertension, breast augmentation, and endometrial ablation. We are asked to see her for alcoholic liver disease. She presented to the ER room 12/28/2023 with complaints of epigastric abdominal pain for 5 days with nausea, vomiting, diarrhea and decreased appetite. She had ketoacidosis on admission and given IV fluids with Dextrose but eventually was switched to LR on the once to the floor. She had been NPO till lunch time today at ate creme of wheat 30 min ago and has had no increasing abdominal pain or diarrhea. She took pain medication this morning. Her last episode of vomiting was in the ER on the . She rates her current pain as a 2/10. She reports having a bowel movement of pure diarrhea, which was her first bowel movement since admission as of this AM. She denies melena or hematochezia. She reports a history of pancreatitis in 2019, likely due to her daily alcohol consumption of a few shots with her coffee. She reports increased alcohol consumption (about a pint and a half daily) leading up to this admission due to stress related to her 's job loss and the recent presidential election. She denies yellowing of the skin or eyes. Her skin felt dry. She reports smoking since age 16. She denies any family history of GI cancers, but her mother had leukemia. She reports having some heartburn, but not often, and vomiting frequently in the last month, which she attributes to stress. Denies aspirin, NSAID, or anticoagulant use. ENDOSCOPY HISTORY: EGD: None COLONOSCOPY: 2016 (in [place]) Reason: Screening. Findings: A couple of polyps removed. Repeat colonoscopy recommended in 10 years. LABS AND STOOL STUDIES: On admission: WBC 10.1, HGB 15, HCT 46.9, MCV 90.3 Na 138, K 4.0, BUN 12, creatinine 0.6, glucose 172, calcium 10.6, magnesium 1.8, AST 84, ALT 63, alkaline phosphatase 102, albumin 5, lipase 7501 12/29/2023: To PBC 10.7, HGB 15.1, HCT 44.6, MCV 95.7, platelets 137, Na 130, K 3.4, BUN 9, creatinine 0.50, glucose 179, calcium 9.2, magnesium 1.6, AST 67, ALT 43, alkaline phosphatase 90, lipase 1706 IMAGING: CT abdomen/pelvis with contrast on 12/28/2023: Findings: Mild dependent atelectasis in the bilateral lower lobes. Heart size normal. No pericardial or pleural effusion. Diffuse hepatic steatosis. Gallbladder, spleen, bilateral adrenal glands, and kidneys normal. Swelling of the pancreatic tail with surrounding peripancreatic inflammatory stranding and multiple scattered dystrophic parenchymal calcifications consistent with acute on chronic interstitial pancreatitis. Mild likely reactive peripancreatic lymphadenopathy. No peripancreatic abscesses, necrosis, or other peripancreatic fluid collections. Impression: Acute on chronic interstitial pancreatitis. Diffuse hepatic steatosis. Abdomen Ultrasound on 12/28/2023: Impression: Gallbladder distention without stones identified. Common bile duct distention, 8.8 mm. Fatty infiltration of an enlarged liver. Indeterminate focus within the caudate lobe, possibly a flash filling hemangioma, and less likely an arteriovenous malformation. <Maria M Marie APRN - Last Filed: 12/31/23 13:50> Review of Systems Constitutional: Constitutional: Denies headache(s) and Denies weakness <Maria M Marie APRN - Last Filed: 12/31/23 13:50> Eyes: Eyes: Denies blurry vision <Maria M Marie APRN - Last Filed: 12/31/23 13:50> ENT: Reports Normal hearing present, Denies headache(s) and Denies neck pain <Maria M Marie APRN - Last Filed: 12/31/23 13:50> Cardiovascular: Cardiovascular: Denies chest pain and Denies dyspnea <Maria M TaraRoas Maria Marie APRN - Last Filed: 12/31/23 13:50> Respiratory: Respiratory: Denies dyspnea <Maria M TaraRosa Maria Marie APRN - Last Filed: 12/31/23 13:50> Gastrointestinal: Gastrointestinal: Reports no additional gastrointestinal complaints <Maria M TaraRosa Maria Marie APRN - Last Filed: 12/31/23 13:50> Genitourinary: Genitourinary: Denies dysuria <Maria M TaraRosa Maria Marie APRN - Last Filed: 12/31/23 13:50> Musculoskeletal: Musculoskeletal: Denies neck pain <Maria M Marie APRN - Last Filed: 12/31/23 13:50> Integumentary/Breasts: Skin/Breast: Denies dry skin <Maria M Marie APRN - Last Filed: 12/31/23 13:50> Neurologic: Reports Normal hearing present, Denies headache(s) and Denies weakness <Maria M Marie APRN - Last Filed: 12/31/23 13:50> Psychiatric: Psychiatric: Denies anxiety <Maria M Marie APRN - Last Filed: 12/31/23 13:50> Endocrine: Endocrine: Denies change in body appearance <Maria M Marie APRN - Last Filed: 12/31/23 13:50> Hematologic/Lymphatic: Hematologic/Lymphatic: Denies easy bleeding <Maria M Marie APRN - Last Filed: 12/31/23 13:50> Allergic/Immunologic: Allergic/Immunologic: Denies urticaria <Maria M Marie APRN - Last Filed: 12/31/23 13:50> [facility] Past Medical History Medical History: Medical History Alcohol abuse Fatty liver Hypertension Insomnia Pancreatitis Tobacco dependence <Maria M Marie APRN - Last Filed: 12/31/23 13:50> Surgical History Surgical History: Surgical History History of breast augmentation History of endometrial ablation <Maria M M. Cynthia, REGIONAL BUSINESS MANAGER - Last Filed: 12/31/23 13:50> Family History Family History: Family History Father Alcoholism Mother Acute myelogenous leukemia Hypertension Heart disease after Chemotherapy Sibling Alcoholism Depression <Maria M Marie APRN - Last Filed: 12/31/23 13:50> Social History Social History: Social History (Updated 12/28/23 @ 23:42 by Laura Chauhan PA-C) Social History: Surrogate medical decision maker: Atilio Kern, spouse. Code status: Full code. Smoking packs per day: 1 Smoking cigarettes per day: 20.0 Years smoked: 47 Smoking pack-years: 47.00 Smoking status: Current every day smoker Tobacco type: cigarettes Alcohol intake: current Drinks per week: 21 Alcohol use details: three shots of vodka a day Substance use: former Substance use type: marijuana and crack/cocaine Other substance usage details: vodka- 3 shots per day lAst Alcohol 12/26/23 Last use: MJ in college, cocaine addiction for 8 years- stopped in 2007 Do You Feel Safe in your Home?: Yes Lack of Transportation: No Lack of Food: Never True Current Housing: I Have Housing Concerned About Future Housing: YES Difficulty Paying Gas/Electric Bills: No Difficulty Paying for Meds: No Currently Unemployed: No Education: Trade/Vocational Certificate Difficulty w/ Childcare or Family Care: No Living arrangements: with family Occupation/Education: retired Spiritual care concerns: No <Maria M Marie, REGIONAL BUSINESS MANAGER - Last Filed: 12/31/23 13:50> Meds Home Medications and Allergies Home medications: Home Medications Medication Instructions Recorded Confirmed Type atorvastatin 20 mg tablet 20 mg PO QHS #90 tabs 09/18/23 12/28/23 Rx losartan 50 mg tablet 50 mg PO DAILY #30 tabs 12/17/23 12/28/23 Rx <Maria M Marie, REGIONAL BUSINESS MANAGER - Last Filed: 12/31/23 13:50> Allergies/Adverse reactions: Allergies Allergy/AdvReac Type Severity Reaction Status Date / Time sertraline [From Zoloft] Allergy Mild Other Verified 12/28/23 17:55 Sulfa (Sulfonamide Allergy Mild Rash Verified 12/28/23 17:55 Antibiotics) Penicillins Allergy Unknown Swelling Verified 12/28/23 13:26 <Maria M Marie APRN - Last Filed: 12/31/23 13:50> Vital Signs Vital Signs - 24 hr 12/30/23 14:06 12/30/23 20:55 12/31/23 06:00 Temperature 98.4 F 98.6 F 98.6 F Pulse Rate 107 H 100 84 Respiratory Rate 16 20 20 Blood Pressure 128/77 146/94 H 143/86 H Pulse Oximetry 94 100 95 <Maria M Marie APRN - Last Filed: 12/31/23 13:50> Exam Const: General: comfortable and no acute distress <Maria M Marie APRN - Last Filed: 12/31/23 13:50> HENMT: Face/Nose/Sinus: Normal nares present <Maria M Marie APRN - Last Filed: 12/31/23 13:50> Eyes: General: appearance normal, both eyes and all related structures <Maria M Marie APRN - Last Filed: 12/31/23 13:50> Neck: Neck: no JVD <Maria M Marie APRN - Last Filed: 12/31/23 13:50> Resp: Auscultation: clear to auscultation bilaterally <Maria M Marie APRN - Last Filed: 12/31/23 13:50> Cardio: Rate: regular rate <Maria M Mraie APRN - Last Filed: 12/31/23 13:50> Rhythm: regular rhythm <Maria M Marie APRN - Last Filed: 12/31/23 13:50> GI: Inspection: non-distended <Maria M Marie APRN - Last Filed: 12/31/23 13:50> GI Palp: Yes Tenderness to palpation present (GI) (epigastric and bilateral Lower quadrants) <Maria M Marie APRN - Last Filed: 12/31/23 13:50> Auscultation: normal bowel sounds <Maria M Marie APRN - Last Filed: 12/31/23 13:50> Skin: General skin exam: normal color <Maria M Marie APRN - Last Filed: 12/31/23 13:50> Neuro: Speech: normal speech <Maria M Marie APRN - Last Filed: 12/31/23 13:50> Extrem: General: normal to inspection <Maria M Marie APRN - Last Filed: 12/31/23 13:50> Psych: Mental Status: mental status grossly normal <Maria M Marie APRN - Last Filed: 12/31/23 13:50> Results Labs CBC & Chem 7: 12/31/23 13:54 12/31/23 13:54 <Maria M Marie APRN - Last Filed: 12/31/23 13:50>
[2023-12-31 13:36] VITALS: BP 117/54; PULSE 87; RESP 16; TEMP 37; O2SAT 99
[2023-12-31 14:04] LABS: Hematocrit 39.6 % (37.0-47.0); Hemoglobin 13.3 g/dL (12.0-15.0); Immature Platelet Fraction Pct 5.2 % (0.9-11.2); Mean Corpuscular HGB Conc 33.6 g/dl (32-36); Mean Corpuscular Hemoglobin 32.8 pg (26-34); Mean Corpuscular Volume 97.8 fl (80-100); Mean Platelet Volume 10.5 fl (7.4-10.4); Platelet Count Result 141 k/mm3 (150-375); Red Blood Count 4.05 M/mm3 (4.2-5.4); Red Cell Distribution Width 13.2 % (11.5-14.5); White Blood Count 4.4 K/mm3 (4.5-10.0)
[2023-12-31 14:24] LABS: Alanine Aminotransferase 77 U/L (6-35); Albumin Level 3.1 g/dL (3.5-5.1); Alkaline Phosphatase 130 U/L (38-126); Anion Gap 4 mmol/L (4-12); Aspartate Amino Transferase 141 U/L (14-36); Bilirubin,Total 0.6 mg/dL (0.2-1.3); Blood Urea Nitrogen 8 mg/dL (7-17); Calcium 8.6 mg/dL (8.4-10.2); Carbon Dioxide 30 mmol/L (22-30); Chloride 101 mmol/L (98-107); Estimated CRCL calculation 86 ml/min; Estimated Glomerular Filt Rate > 60; Glucose 223 mg/dL (65-110); Potassium 2.9 mmol/L (3.4-5.0); Sodium 135 mmol/L (137-145)
[2023-12-31 14:29] LABS: CRP 5.1 mg/dL (<1.0)
[2023-12-31 15:14] LABS: Hepatitis B Surface Antigen Negative (Negative)
[2023-12-31 15:20] LABS: HAV RESULT Negative (Negative); Hepatitis B Core IgM Result Negative (Negative)
[2023-12-31 15:32] LABS: Hepatitis C Virus Antibody Negative (Negative)
[2023-12-31] MEDS: POTASSIUM CHLORIDE INJ 40 MEQ in SODIUM CHLORIDE 0.9% IV 500 ML 130 MEQ IVPB (20:43)
[2023-12-31] MEDS: ATORVASTATIN 20 MG TABLET PO (20:45)
[2023-12-31 21:01] VITALS: BP 170/85; PULSE 85; RESP 18; TEMP 36.7; O2SAT 98
[2024-01-01 02:58] LABS: Potassium 3.5 mmol/L (3.4-5.0)
[2024-01-01 02:59] LABS: Magnesium 1.4 mg/dL (1.6-2.3)
[2024-01-01] MEDS: MAGNESIUM SULFATE 3GM/D5W100ML 3 GM/100 ML BAG IVPB (03:26)
[2024-01-01] MEDS: HYDROcodone/acetaminophen (*CRX) 5-325 MG TABLET 1 TAB PO ×4 (03:30→20:29)
[2024-01-01] MEDS: LOPERAMIDE HCL 2 MG CAPSULE PO ×5 (03:30→23:22)
[2024-01-01 06:00] VITALS: BP 152/86; PULSE 81; RESP 18; TEMP 37; O2SAT 97
[2024-01-01] MEDS: FOLIC ACID 1 MG TABLET PO (09:43)
[2024-01-01] MEDS: THERAPEUTIC MULTIVITAMINS/MINERALS TAB (*BKC) 1 TABLET PO (09:43)
[2024-01-01] MEDS: LOSARTAN POTASSIUM 50 MG TABLET PO (09:43)
[2024-01-01] MEDS: THIAMINE HCL 100 MG TABLET PO (09:43)
[2024-01-01] MEDS: ENOXAPARIN 40 MG/0.4 ML SYRINGE SUB-Q (09:46)
[2024-01-01] MEDS: NICOTINE (*PBKC) 7 MG PATCH 1 PATCH TRANSDERM (13:17)
[2024-01-01] MEDS: LACTATED RINGERS 1,000 ML 100 ML IV CONT ×2 (13:17→23:22)
--- NOTE | 2024-01-01 14:04 | P.PNIM_ITS ---
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 Continue bowel rest for now. IV fluids with dextrose given ketoacidosis due to alcoholism and poor oral intake- stopped an switched to LR-will continue Analgesics and antiemetics are available as needed. AST and ALT are mildly elevated (alcohol use and fatty liver) - will see if pt is following with GI- if not - will add consult and pt will need to f/u outpt. -12/29- advance diet today try to avoid IV pain med will add norco if needed (2) Elevated LFTs: Code(s): R79.89 - Other specified abnormal findings of blood chemistry Status: Acute Assessment and Plan: trend labs will need fibroscan outpt will see GI while here and will need a follow up once discharged (3) Hypertension: Code(s): I10 - Essential (primary) hypertension Status: Acute (4) Alcohol abuse: Code(s): F10.10 - Alcohol abuse, uncomplicated Status: Acute Assessment and Plan: She has not had alcohol for 4 days and is not showing any signs of withdrawal symptoms at this time however will initiate CIWA protocol. She seems motivated to quit drinking and smoking. (5) Tobacco dependence: Code(s): F17.200 - Nicotine dependence, unspecified, uncomplicated Status: Acute Assessment and Plan: counselling completed Plan dvt prophylaxis: lonenox Time Spent With Patient Time with patient: Greater than 35 minutes Subjective Date/time seen: 01/01/24 14:04 Interval history: This is a 63-year-old female smoker with history of alcohol abuse, pancreatitis, hypertension, hyperlipidemia, obstructive sleep apnea admitted from home for evaluation of abdominal pain. In the ED: Blood pressure was 207/112 on arrival but has improved with pain control. She has been intermittently tachycardic in the low 100s, and a sinus rhythm. The remainder of her vital signs are stable. Labs are significant for WBC count of 10.1, hemoglobin 15.5, carbon dioxide 15, anion gap 18, BUN 12, creatinine 0.60, calcium 10.6, AST 84, ALT 63, lipase 7501. Urinalysis was positive for 1+ protein, trace glucose, and 4+ ketones. Ethyl alcohol level was undetectable. CT of the abdomen and pelvis showed acute on chronic interstitial pancreatitis and diffuse hepatic steatosis. Right upper quadrant ultrasound showed gallbladder distention without stones and common bile duct distension with fatty infiltration of an enlarged liver. She was given fluids, antiemetics, and analgesics. 12/28- pt is seen and examined. she is still nauseated. Pain is controlled with iv pain med. She is determined to quit drinking and smoking to improve her health. 12/29- pt is seen and examined. still somewhat nauseated but was able to tolerated some juice. will try to advance diet today. 12/30- pt is somewhat better with nausea but still pain- will consult GI- i don't think there any acute urgent interventions need sot be done but at least, she will establish with GI to f/u as outpt. Try to advance today. Anticipate discharge home tomorrow if stable overnight. 12/31 MRCP today. Advance diet if able. Anticipate discharge in the next few days with f/u outpt with GI Review of Systems Review of Systems: 12 systems were reviewed and are negativ e except for as per HPI. Constitutional: Constitutional: Denies chills Cardiovascular: Cardiovascular: Denies chest pain Respiratory: Respiratory: Denies cough Gastrointestinal: Gastrointestinal: Reports abdominal pain and Reports nausea Exam Narrative: General: Well-developed, alert. HEENT: PERRL, EOMI. Sclera anicteric. Conjunctiva mildly injected. Tacky mucous membranes. Neck: Supple. Respiratory: Lungs are clear to auscultation bilaterally. Cardiovascular: Tachycardic with normal S1-S2. Gastrointestinal: Abdomen is soft and perhaps slightly distended with positive bowel sounds. She is tender to palpation throughout the periumbilical region but more so in the left upper quadrant. No guarding or rebound tenderness. Skin: Warm and dry. No rash or lesions on limited exam. Extremities: No cyanosis, clubbing, or edema. Radial and pedal pulses intact. Neurological: Alert and oriented. Cranial nerves 2-12 are grossly intact. No tremors. No gross focal deficits to casual conversation. Psychiatric: Pleasant and cooperative with appropriate mood and affect. Objective Data Vital Signs Vital Signs: Vital Signs - 24 hr 12/31/23 21:01 01/01/24 06:00 01/01/24 08:00 Temperature 98.1 F 98.6 F Pulse Rate 85 81 Respiratory Rate 18 18 Blood Pressure 170/85 H 152/86 H Pulse Oximetry 98 97 Oxygen Delivery Room Air Intake/Output Intake/Output: Intake & Output 12/29/23 12/30/23 12/31/23 01/01/24 23:59 23:59 23:59 23:59 Intake Total 1000 3456.7 3660 2100 Balance 1000 3456.7 3660 2100 Meds/Results Medications: Active Medications Generic Name Dose Route Start Last Admin Trade Name Freq PRN Reason Stop Dose Admin Acetaminophen 650 mg 12/28/23 16:32 12/30/23 00:14 Acetaminophen 325 Mg Tablet PO 650 mg Q6H PRN Administration Mild Pain (1-3) or Fever Hydrocodone Bitart/Acetaminophen 1 tab 12/30/23 10:49 01/01/24 09:45 Hydrocodone/Acetaminophen (*Crx) 5-325 Mg Tablet PO 1 tab Q4H PRN Administration Pain Rated 4-6 Atorvastatin Calcium 20 mg 12/28/23 21:00 12/31/23 20:45 Atorvastatin 20 Mg Tablet PO 20 mg QHS PACO Administration Chlordiazepoxide HCl 10 mg 12/28/23 16:32 Chlordiazepoxide (*Crx) 10 Mg Capsule PO Q8H PRN withdrawal symptoms & CIWA < 8 Enoxaparin Sodium 40 mg 12/29/23 09:00 01/01/24 09:46 Enoxaparin 40 Mg/0.4 Ml Syringe SUB-Q 40 mg DAILY PACO Administration Folic Acid 1 mg 12/30/23 09:10 01/01/24 09:43 Folic Acid 1 Mg Tablet PO 1 mg DAILY PACO Administration Hydralazine HCl 10 mg 12/28/23 23:44 12/29/23 00:30 Hydralazine Hcl 20 Mg/Ml Vial IV PUSH 10 mg Q6H PRN Administration SBP > 165 or DBP > 105 Hydromorphone HCl 0.5 mg 12/28/23 16:32 Hydromorphone Hcl Inj (*Crx) 1 Mg/Ml Syr IV PUSH Q3H PRN Pain Rated 4-6 Hydromorphone HCl 1 mg 12/28/23 18:07 12/30/23 22:32 Hydromorphone Hcl Inj (*Crx) 1 Mg/Ml Syr IV PUSH 1 mg Q3H PRN Administration Pain Rated 7-10 Lactated Ringer's 1,000 mls @ 100 mls/hr 12/29/23 03:00 01/01/24 13:17 Lr - Lactated Ringers Iv IV CONT 100 mls/hr .Q10H PACO Administration Loperamide HCl 2 mg 01/01/24 00:04 01/01/24 09:45 Loperamide Hcl 2 Mg Capsule PO 2 mg PRN PRN Administration Diarrhea Lorazepam 1 mg 12/28/23 16:32 Lorazepam Inj (*Crx) 2 Mg/Ml Vial IV PUSH Q2H PRN CIWA 8-15 Lorazepam 2 mg 12/28/23 16:32 Lorazepam Inj (*Crx) 2 Mg/Ml Vial IV PUSH Q2H PRN CIWA > 15 Losartan Potassium 50 mg 12/28/23 18:19 01/01/24 09:43 Losartan Potassium 50 Mg Tablet PO 50 mg DAILY PACO Administration Multivitamins/Calcium 1 tablet 12/30/23 09:10 01/01/24 09:43 Therapeutic Multivitamins/Minerals Tab (*Bkc) PO 1 tablet QAM PACO Administration Nicotine 1 patch 12/30/23 12:00 01/01/24 13:17 Nicotine (*Pbkc) 7 Mg Patch TRANSDERM 1 patch DAILY PACO Administration Ondansetron HCl 4 mg 12/28/23 16:32 12/30/23 22:32 Ondansetron Inj 4 Mg/2 Ml Vial IV PUSH 4 mg Q6H PRN Administration Nausea And Vomiting Thiamine HCl 100 mg 12/28/23 16:35 01/01/24 09:43 Thiamine Hcl 100 Mg Tablet PO 100 mg QAM PACO Administration Radiology Results: ITS Impressions Abdomen/Pelvis CT 12/28/23 12:32 IMPRESSION: 1. Acute on chronic interstitial pancreatitis. 2. Diffuse hepatic steatosis. Chest X-Ray 12/28/23 12:38 Impression: Clear lungs. Abdomen Ultrasound 12/28/23 14:00 IMPRESSION: Gallbladder distention, without stones identified Common bile duct distention. Fatty infiltration of an enlarged liver. Indeterminate focus within the caudate lobe, possibly a flash filling hemangioma, and less likely a arteriovenous malformation. MRCP 01/01/24 13:06 IMPRESSION: 1. Acute interstitial pancreatitis. 2. Gallbladder distention and intrahepatic and extrahepatic biliary duct dilatation, worsened from 12/28/2023, which may be secondary to the acute pancreatitis. 3. 14 mm hemangioma in the liver. 4. Diffuse hepatic steatosis. Labs Labs: Laboratory Results - last 24 hr 12/31/23 01/01/24 13:54 02:37 WBC 4.4 L RBC 4.05 L Hgb 13.3 Hct 39.6 MCV 97.8 MCH 32.8 MCHC 33.6 RDW 13.2 Plt Count 141 L MPV 10.5 H % Immature Plt Fraction 5.2 Sodium 135 L Potassium 2.9 L 3.5 Chloride 101 Carbon Dioxide 30 Anion Gap 4 BUN 8 Creatinine 0.60 L Estim Creat Clear Calc 86 Estimated GFR > 60 Glucose 223 H Calcium 8.6 Magnesium 1.4 L Total Bilirubin 0.6 AST 141 H ALT 77 H Alkaline Phosphatase 130 H C-Reactive Protein 5.1 H Total Protein 6.0 L Albumin 3.1 L Hepatitis A IgM Ab Negative Hep Bs Antigen Negative Hep B Core IgM Ab Negative Hepatitis C Ab Screen Negative Quality VTE Prophylaxis VTE prophylaxis: pharmacologic ordered
[2024-01-01 15:00] VITALS: BP 139/66; PULSE 86; RESP 18; TEMP 36.7; O2SAT 96
[2024-01-01] MEDS: LIPASE/AMYLASE/PROTEASE 12,000 UNITS CAP 3 CAP PO (18:50)
--- NOTE | 2024-01-01 19:01 | WPDGIPROGNO ---
Progress Note: A&P Assessment and Plan (1) Chronic pancreatitis: Code(s): K86.1 - Other chronic pancreatitis Status: Acute Assessment and Plan: Patient with acute pancreatitis exacerbating a preexistent chronic alcoholic pancreatitis. She is improving, her MRI and MRCP did not show necrosis or intraluminal common bile duct defects. There is however some dilatation of the common bile duct secondary to pancreatic edema. Will attempt advancing diet. Will collect stools for culture and C diff toxin, and will also add Creon 36,000 lipase units with each meal. (2) Alcoholic pancreatitis: Code(s): K85.20 - Alcohol induced acute pancreatitis without necrosis or infection Status: Acute Subjective Date/time seen: 01/01/24 19:01 Interval history: the patient has been having frequent diarrhea for the past 24 hours. She continues to have some degree of abdominal pain, although much less than the prior days. Exam Narrative: General: Well-developed, alert. HEENT: PERRL, EOMI. Sclera anicteric. Conjunctiva mildly injected. Tacky mucous membranes. Neck: Supple. Respiratory: Lungs are clear to auscultation bilaterally. Cardiovascular: Tachycardic with normal S1-S2. Gastrointestinal: Abdomen is soft and perhaps slightly distended with positive bowel sounds. She is tender to palpation throughout the periumbilical region but more so in the left upper quadrant. No guarding or rebound tenderness. Skin: Warm and dry. No rash or lesions on limited exam. Extremities: No cyanosis, clubbing, or edema. Radial and pedal pulses intact. Neurological: Alert and oriented. Cranial nerves 2-12 are grossly intact. No tremors. No gross focal deficits to casual conversation. Psychiatric: Pleasant and cooperative with appropriate mood and affect. Objective Data Vital Signs Vital Signs: Vital Signs - 24 hr 12/31/23 21:01 01/01/24 06:00 01/01/24 08:00 Temperature 98.1 F 98.6 F Pulse Rate 85 81 Respiratory Rate 18 18 Blood Pressure 170/85 H 152/86 H Pulse Oximetry 98 97 Oxygen Delivery Room Air 01/01/24 15:00 Temperature 98.1 F Pulse Rate 86 Respiratory Rate 18 Blood Pressure 139/66 Pulse Oximetry 96 Oxygen Delivery Intake/Output Intake/Output: Intake & Output 11/23/24 11/24/24 11/25/24 11/26/24 23:59 23:59 23:59 23:59 Intake Total 1000 3456.7 3660 2820 Balance 1000 3456.7 3660 2820 Meds/Results Medications: Active Medications Generic Name Dose Route Start Last Admin Trade Name Freq PRN Reason Stop Dose Admin Acetaminophen 650 mg 12/28/23 16:32 12/30/23 00:14 Acetaminophen 325 Mg Tablet PO 650 mg Q6H PRN Administration Mild Pain (1-3) or Fever Hydrocodone Bitart/Acetaminophen 1 tab 12/30/23 10:49 01/01/24 16:29 Hydrocodone/Acetaminophen (*Crx) 5-325 Mg Tablet PO 1 tab Q4H PRN Administration Pain Rated 4-6 Lipase/Protease/Amylase 3 cap 01/01/24 18:00 01/01/24 18:50 Lipase/Amylase/Protease 12,000 Units Cap PO 3 cap TIDWM PACO Administration Atorvastatin Calcium 20 mg 12/28/23 21:00 12/31/23 20:45 Atorvastatin 20 Mg Tablet PO 20 mg QHS PACO Administration Chlordiazepoxide HCl 10 mg 12/28/23 16:32 Chlordiazepoxide (*Crx) 10 Mg Capsule PO Q8H PRN withdrawal symptoms & CIWA < 8 Enoxaparin Sodium 40 mg 12/29/23 09:00 01/01/24 09:46 Enoxaparin 40 Mg/0.4 Ml Syringe SUB-Q 40 mg DAILY PACO Administration Folic Acid 1 mg 12/30/23 09:10 01/01/24 09:43 Folic Acid 1 Mg Tablet PO 1 mg DAILY PACO Administration Hydralazine HCl 10 mg 12/28/23 23:44 12/29/23 00:30 Hydralazine Hcl 20 Mg/Ml Vial IV PUSH 10 mg Q6H PRN Administration SBP > 165 or DBP > 105 Hydromorphone HCl 0.5 mg 12/28/23 16:32 Hydromorphone Hcl Inj (*Crx) 1 Mg/Ml Syr IV PUSH Q3H PRN Pain Rated 4-6 Hydromorphone HCl 1 mg 12/28/23 18:07 12/30/23 22:32 Hydromorphone Hcl Inj (*Crx) 1 Mg/Ml Syr IV PUSH 1 mg Q3H PRN Administration Pain Rated 7-10 Lactated Ringer's 1,000 mls @ 100 mls/hr 12/29/23 03:00 01/01/24 13:17 Lr - Lactated Ringers Iv IV CONT 100 mls/hr .Q10H PACO Administration Loperamide HCl 2 mg 01/01/24 00:04 01/01/24 16:27 Loperamide Hcl 2 Mg Capsule PO 2 mg PRN PRN Administration Diarrhea Lorazepam 1 mg 12/28/23 16:32 Lorazepam Inj (*Crx) 2 Mg/Ml Vial IV PUSH Q2H PRN CIWA 8-15 Lorazepam 2 mg 12/28/23 16:32 Lorazepam Inj (*Crx) 2 Mg/Ml Vial IV PUSH Q2H PRN CIWA > 15 Losartan Potassium 50 mg 12/28/23 18:19 01/01/24 09:43 Losartan Potassium 50 Mg Tablet PO 50 mg DAILY PACO Administration Multivitamins/Calcium 1 tablet 12/30/23 09:10 01/01/24 09:43 Therapeutic Multivitamins/Minerals Tab (*Bkc) PO 1 tablet QAM PACO Administration Nicotine 1 patch 12/30/23 12:00 01/01/24 13:17 Nicotine (*Pbkc) 7 Mg Patch TRANSDERM 1 patch DAILY PACO Administration Ondansetron HCl 4 mg 12/28/23 16:32 12/30/23 22:32 Ondansetron Inj 4 Mg/2 Ml Vial IV PUSH 4 mg Q6H PRN Administration Nausea And Vomiting Thiamine HCl 100 mg 12/28/23 16:35 01/01/24 09:43 Thiamine Hcl 100 Mg Tablet PO 100 mg QAM PACO Administration Radiology Results: ITS Impressions Abdomen/Pelvis CT 12/28/23 12:32 IMPRESSION: 1. Acute on chronic interstitial pancreatitis. 2. Diffuse hepatic steatosis. Chest X-Ray 12/28/23 12:38 Impression: Clear lungs. Abdomen Ultrasound 12/28/23 14:00 IMPRESSION: Gallbladder distention, without stones identified Common bile duct distention. Fatty infiltration of an enlarged liver. Indeterminate focus within the caudate lobe, possibly a flash filling hemangioma, and less likely a arteriovenous malformation. MRCP 01/01/24 13:06 IMPRESSION: 1. Acute interstitial pancreatitis. 2. Gallbladder distention and intrahepatic and extrahepatic biliary duct dilatation, worsened from 12/28/2023, which may be secondary to the acute pancreatitis. 3. 14 mm hemangioma in the liver. 4. Diffuse hepatic steatosis. Labs Labs: Laboratory Results - last 24 hr 01/01/24 02:37 Potassium 3.5 Magnesium 1.4 L
[2024-01-01 19:45] LABS: Toxigenic C. Diff NEGATIVE (NEGATIVE)
[2024-01-01 19:59] VITALS: BP 148/83; PULSE 86; RESP 16; TEMP 36.4; O2SAT 98
[2024-01-01] MEDS: ATORVASTATIN 20 MG TABLET PO (20:28)
[2024-01-02 04:12] VITALS: BP 130/87; PULSE 76; RESP 18; TEMP 36.8; O2SAT 94
[2024-01-02] MEDS: LOPERAMIDE HCL 2 MG CAPSULE PO (08:43)
[2024-01-02] MEDS: THERAPEUTIC MULTIVITAMINS/MINERALS TAB (*BKC) 1 TABLET PO (08:43)
[2024-01-02] MEDS: THIAMINE HCL 100 MG TABLET PO (08:44)
[2024-01-02] MEDS: LOSARTAN POTASSIUM 50 MG TABLET PO (08:44)
[2024-01-02] MEDS: FOLIC ACID 1 MG TABLET PO (08:44)
[2024-01-02] MEDS: HYDROcodone/acetaminophen (*CRX) 5-325 MG TABLET 1 TAB PO ×2 (08:44→12:44)
[2024-01-02] MEDS: LIPASE/AMYLASE/PROTEASE 12,000 UNITS CAP 3 CAP PO ×2 (08:44→12:38)
[2024-01-02] MEDS: NICOTINE (*PBKC) 7 MG PATCH 1 PATCH TRANSDERM (08:46)
[2024-01-02] MEDS: ENOXAPARIN 40 MG/0.4 ML SYRINGE SUB-Q (08:48)
[2024-01-02 11:08] LABS: Lipase 233 U/L (23-300)
[2024-01-02 14:00] VITALS: BP 108/65; PULSE 86; RESP 19; TEMP 36.4; O2SAT 98
--- NOTE | 2024-01-02 14:14 | P.DS_ITS ---
DS: Admitting Diagnosis Discharge Date 01/02/2024 Admitting Diagnosis Abdominal Pain DS: Discharge Diagnosis Discharge Diagnosis (1) Pancreatitis: Code(s): K85.90 - Acute pancreatitis without necrosis or infection, unspecified Status: Acute Assessment and Plan: CT scan shows acute on chronic interstitial pancreatitis, likely due to ongoing alcohol use. Placed on bowel rest on admission but currently tolerating low-fat diet without any GI symptoms. Treated with analgesics and antiemetics. Lipase level wnl prior to discharge. Seen by GI and started on Creon with meals. (2) Elevated LFTs: Code(s): R79.89 - Other specified abnormal findings of blood chemistry Status: Acute Assessment and Plan: Likely secondary to alcohol abuse. Seen by GI and will follow up outpatient. Encouraged with alcohol cessation. (3) Hypertension: Code(s): I10 - Essential (primary) hypertension Status: Acute Assessment and Plan: BP well controlled. Continue Losartan. (4) Alcohol abuse: Code(s): F10.10 - Alcohol abuse, uncomplicated Status: Acute Assessment and Plan: She has not had alcohol for 4 days and is not showing any signs of withdrawal symptoms at this time however will initiate CIWA protocol. She seems motivated to quit drinking and smoking. (5) Tobacco dependence: Code(s): F17.200 - Nicotine dependence, unspecified, uncomplicated Status: Acute Assessment and Plan: counselling completed and encouraged with cessation. Plan Discharge Home. DS: Summary Hospital Course Reason for hospitalization: Abdominal Pain Hospital Course: Patient presented to the hospital with reports of abdominal pain for the last couple of days prior to admission. Patient's CT scan showed acute on chronic interstitial pancreatitis, likely due to ongoing alcohol use. She was placed on bowel rest with IVF hydration. Patient was cautiously started on diet and has been able to tolerate a low fat diet prior to discharge. Patient was also noted with elevated LFT's likely due to alcohol abuse, and she was counseled on alcohol and smoking cessation. She was given pain and nausea meds for her symp toms. She was seen by GI and will follow-up outpatient for further work-up and treatment regarding her liver and pancreas issues. No acute distress noted or reported prior to discharge. Status at Discharge Functional status at discharge: independent ambulation Overall status at discharge: patient is progressing back to baseline Time Spent with Patient Time attestation: Total time spent providing and/or coordinating discharge services: Time spent: Greater than 30 minutes Exam Narrative: General: Well-appearing, no acute distress. HEENT: PERRL, EOMI. Sclera anicteric, moist mucosa. Neck: Supple. Respiratory: Lungs clear bilaterally. Cardiovascular: RRR, no murmurs. Gastrointestinal: Abdomen is soft, non-tender, positive bowel sounds X4 quadrants. Skin: Warm and dry. No rash or lesions on limited exam. Extremities: No cyanosis, clubbing, or edema. Radial and pedal pulses intact. Neurological: Alert and oriented. Cranial nerves 2-12 are grossly intact. Psychiatric: Pleasant and cooperative with appropriate mood and affect. DS: Data Data Completed and Pending Labs on day of discharge: Labs from last 24 hours 01/01/24 01/01/24 18:43 02:37 Lipase 233 C. difficile (PCR) Negative Discharge Plan Discharge Attending physician on discharge: Jamie Cleaning Consulting providers: Nima Sparks Discharging Clinician: Thad Henderson Anticipated Discharge Date/Time: 01/02/24 14:34 Patient Disposition: Home, Self-Care Activity: as tolerated Diet: heart healthy Patient Instructions: Antibiotic Form Stand Alone Forms: General Discharge Information Follow-up/Referrals: Nima Sparks MD [Physician] - 4 Weeks Connor Alexander DO [Primary Care Provider] - 1 Week Discharge Medications: New thiamine HCl (vitamin B1) [Vitamin B-1] 100 mg Tablet 100 mg PO QAM Qty: 14 0RF folic acid 1 mg Tablet 1 mg PO DAILY Qty: 14 0RF Creon 12,000-38,000 -60,000 unit Capsule,Delayed Release(Dr/Ec) 3 cap PO TIDWM Qty: 30 0RF multivitamin [Daily Multi-Vitamin] Tablet 1 tablet PO DAILY Qty: 30 0RF Continued atorvastatin 20 mg tablet 20 mg PO QHS Qty: 90 0RF Rx Instructions: DUE FOR AN APPOINTMENT IN DECEMBER losartan 50 mg tablet 50 mg PO DAILY Qty: 30 0RF Rx Instructions: LAST REFILL UNTIL SEEN-NEEDS APPOINTMENT Date of admission: 12/28/23 14:57 Primary Care Provider: Connor Alexander Admitting Provider: Chaim Izaguirre Attending physician on admission: Chaim Izaguirre Condition: Stable Quality If No VTE Prophylaxis Answer both mechanical and pharmacologic: Reason no mechanical VTE proph: low risk/not indicated Reason no pharmacologic proph: low risk/not indicated Hospitalist MIPS Heart Failure (Exclusion) Patient has history of Heart Transplant or Left Ventricular Assistive Device?: No IF YES, STOP HERE Heart Failure (Qualifier) Patient has current or prior documentation of LVEF less than or equal to 40%, or mod/servere depressed LVSF?: No IF NO, STOP HERE
== END 2024-01-02 15:58 | disposition home or self-care (01) | DRG 439 ==
LOC: ANHED 15:03 → ANH3MED 17:59
PROVIDERS: Internal Medicine Gastroenterology; Nurse Practitioner; Nurse Practitioner Adult Health; Physician Assistant; Admitting Provider Internal Medicine; Emergency Provider Emergency Medicine; PCP Internal Medicine; Visit Provider Internal Medicine
DX: K85.20 Alcohol induced acute pancreatitis without necrosis or infection (principal); E87.29 Other acidosis; K86.0 Alcohol-induced chronic pancreatitis; F10.20 Alcohol dependence, uncomplicated; K76.0 Fatty (change of) liver, not elsewhere classified; I10 Essential (primary) hypertension; G47.33 Obstructive sleep apnea (adult) (pediatric); E78.5 Hyperlipidemia, unspecified; E66.9 Obesity, unspecified; Z68.31 Body mass index [BMI] 31.0-31.9, adult; F17.210 Nicotine dependence, cigarettes, uncomplicated; Z20.822 Contact with and (suspected) exposure to COVID-19
CPT/HCPCS: 36415; 71045; 74177; 74183; 76376; 76705; 80053; 80074; 80307; 81001; 82077; 83036; 83690; 83735; 84100; 84132; 84478; 85025; 85027; 85055; 86140; 87045; 87427; 87449; 87493; 87637; 93005; 96374; 99285; A9270; A9577; J0360; J1171; J1650; J2405; J2765; J3411; J3475; J3480; J7030; J7040; J7042; J7120; Q9967

== ENCOUNTER 2024-06-09 08:16 | Outpatient (CLI) | payer OTHER, SELFPAY ==
[2024-06-09 12:33] LABS: Basophils Absolute Auto 0.1 K/mm3 (0.0-0.1); Basophils Percent Auto 0.9 % (0.2-1.2); Eosinophils Absolute Auto 0.3 K/mm3 (0-0.3); Eosinophils Percent Auto 3.7 % (0-4.4); Hematocrit 45.3 % (37.0-47.0); Hemoglobin 14.9 g/dL (12.0-15.0); Immature Granulocyte Absolute 0.04 K/mm3 (0.00-0.031); Immature Granulocyte Percent A 0.5 % (0-0.5); Lymphocytes Absolute Auto 2.88 K/mm3 (0.9-3.2); Lymphocytes Percent Auto 32.5 % (18.3-44.2); Mean Corpuscular HGB Conc 32.9 g/dl (32-36); Mean Corpuscular Hemoglobin 30.7 pg (26-34); Mean Corpuscular Volume 93.4 fl (80-100); Mean Platelet Volume 11.8 fl (7.4-10.4); Monocytes Absolute Auto 0.5 K/mm3 (0.1-0.6); Monocytes Percent Auto 5.8 % (2.6-8.5); Neutrophils Percent Auto 56.6 % (45.5-73.1); Platelet Count Result 233 k/mm3 (150-375); Red Blood Count 4.85 M/mm3 (4.2-5.4); Red Cell Distribution Width 12.3 % (11.5-14.5); White Blood Count 8.9 K/mm3 (4.5-10.0)
[2024-06-09 13:10] LABS: Alanine Aminotransferase 54 U/L (6-35); Albumin Level 4.7 g/dL (3.5-5.1); Alkaline Phosphatase 92 U/L (38-126); Anion Gap 10 mmol/L (4-12); Aspartate Amino Transferase 64 U/L (14-36); Bilirubin,Total 0.4 mg/dL (0.2-1.3); Blood Urea Nitrogen 13 mg/dL (7-17); Calcium 9.9 mg/dL (8.4-10.2); Carbon Dioxide 26 mmol/L (22-30); Chloride 104 mmol/L (98-107); Cholesterol 226 mg/dL (0-200); Estimated Glomerular Filt Rate > 60; Glucose 97 mg/dL (65-110); HDL Direct 38 mg/dL; Potassium 4.7 mmol/L (3.4-5.0); Sodium 140 mmol/L (137-145); Triglycerides 303 mg/dL (<150)
[2024-06-09 13:21] LABS: LDL Cholesterol Direct 107 mg/dL
[2024-06-09 13:56] LABS: Vitamin D 25 Hydroxy 35.7 ng/mL
== END 2024-06-09 08:17 | disposition home or self-care (01) ==
LOC: ANHGOSHLAB 08:17
PROVIDERS: PCP Internal Medicine; Visit Provider Nurse Practitioner
DX: E78.2 Mixed hyperlipidemia (principal); I10 Essential (primary) hypertension; E04.1 Nontoxic single thyroid nodule; E55.9 Vitamin D deficiency, unspecified
CPT/HCPCS: 36415; 80053; 80061; 82306; 84443; 85025

== ENCOUNTER 2024-06-13 08:44 | Outpatient (CLI) | payer OTHER, SELFPAY | END 2024-06-13 08:45 | disposition home or self-care (01) | LOC: ANHGOSHLAB 08:45 | PROVIDERS: PCP Internal Medicine; Visit Provider Otolaryngology | DX: E03.9 Hypothyroidism, unspecified (principal) | CPT/HCPCS: 36415; 84443 ==

== ENCOUNTER 2024-06-13 09:55 | Outpatient (CLI) | payer OTHER, SELFPAY ==
--- NOTE | ~2024-06-13 | XR_ITS ---
XR cervical spine min 6V Ordering provider: Cherie Thomas NP History: . M54.12 - Radiculopathy, cervical region/NO TRAUMA . Comparison: None. FINDINGS: VERTEBRAL BODIES: Minimal anterolisthesis at the level of C4-C5. Otherwise, Normal height and alignme nt. No visible fracture or subluxation. The dens is intact. Degenerative changes of the spine. DISK SPACES: Narrowing of the disc C5-C6. Otherwise, normal. Multilevel facet joint disease. Multilev el uncovertebral joint osteoarthritic changes. PARASPINOUS SOFT TISSUES: No prevertebral soft tissue swelling. IMPRESSION: No acute osseous abnormality cervical spine. Degenerative disc disease at the level of C5-C6. Reviewed, dictated and finalized at location A.
== END 2024-06-13 09:56 | disposition home or self-care (01) ==
PROVIDERS: PCP Internal Medicine; Visit Provider Nurse Practitioner
DX: M50.322 Other cervical disc degeneration at C5-C6 level (principal)
CPT/HCPCS: 72052

== ENCOUNTER 2024-06-17 14:13 | Outpatient (CLI) | payer OTHER, SELFPAY ==
--- NOTE | ~2024-06-17 | CT_ITS ---
CT Scan of the Chest without Contrast: Clinical Indication: Lung cancer screening, nicotine dependence Technique: Contiguous sections were acquired throughout the chest without intravenous contrast. Dose reduction technique was used on this scan by utilizing automated exposure control and iterative recon struction technique. The dose-length product (DLP) was 111.85 mGy-cm. COMPARISON: 05/22/2022 Findings: There is no evidence of any significant mediastinal, hilar or axillary lymphadenopathy. Coronary antonio ry calcifications are present. There is no evidence of pleural or pericardial effusion. New 4 mm right lower lobe pulmonary nodule present (axial image 101). There is linear left lower lobe scarring. Images through the upper abdomen reveal pancreatic calcifications, compatible with chronic pancreatit is. Impression: Lung RADS 2: Benign appearance. 12 month follow-up screening CT advised. Reviewed, dictated and finalized at location . Impression: Lung RADS 2: Benign appearance. 12 month follow-up screening CT advised.
== END 2024-06-17 14:14 | disposition home or self-care (01) ==
LOC: ANHIMG 14:14
PROVIDERS: PCP Internal Medicine; Visit Provider Nurse Practitioner
DX: Z12.2 Encounter for screening for malignant neoplasm of respiratory organs (principal); Z87.891 Personal history of nicotine dependence
CPT/HCPCS: 71271

== ENCOUNTER 2024-07-02 16:59 | Outpatient (CLI) | payer OTHER, SELFPAY ==
--- NOTE | ~2024-07-02 | US_ITS ---
US thyroid INDICATION: Nontoxic thyroid nodule TECHNIQUE: Real-time sonographic images of the thyroid gland were obtained. COMPARISON: Ultrasound dated 12/08/2022 FINDINGS: The right thyroid lobe measures 3.9 x 1.4 x 1.5 cm. The left thyroid lobe measures 5 x 1.7 x 1.1 cm. There is normal echotexture and echogenicity throughout the thyroid gland. In the left thy roid lobe there is a focal hypoechoic solid mass measuring 9 x 8 x 8 mm with posterior shadowing, john ler than wide, irregular margins and no internal calcifications, TR 5. Normal vascular flow is prese nt. IMPRESSION: 1. No significant change to 9 mm left thyroid nodule, TR 5. Recommend either biopsy or 12 month foll ow-up ultrasound. Reviewed, dictated and finalized at location A. IMPRESSION: 1. No significant change to 9 mm left thyroid nodule, TR 5. Recommend either b iopsy or 12 month follow-up ultrasound.
== END 2024-07-02 17:00 | disposition home or self-care (01) ==
PROVIDERS: PCP Internal Medicine; Visit Provider Otolaryngology
DX: E04.1 Nontoxic single thyroid nodule (principal)
CPT/HCPCS: 76536

== ENCOUNTER 2024-07-31 15:00 | Outpatient (RCR) | payer OTHER, SELFPAY ==
--- NOTE | 2024-07-04 14:36 | OPREHPOC ---
Outpatient Therapy Plan of Care This is a Multidisciplinary Plan of Care that may contain components documented by all disciplines (PT, OT, and ST.) PT Problem 1 PT Problem #1 Knowledge Deficit PT Goal 1 Goal / Goal Update 1* independent with HEP 2* pt use correct body mechanics with lifting from floor Target Visit 8 PT Problem 2 PT Problem #2 Pain PT Goal 1 Goal / Goal Update 1* pt report pain rating at worst of 6/10 2* pt report with sleeping, awaken due to pain 1x/ night Target Visit 8 PT Problem 3 PT Problem #3 Impaired Functional Mobility PT Goal 1 Goal / Goal Update pt perform 3x, in standing, without an increase in pain reported: to improve self care, driving and home task performance: R shoulder 1* flexion to 150' 2* abduction to 150' cervical 3* rotation R 70' 4* rotation L 70' 5* flexion, looking to floor Target Visit 8 PT Problem 4 PT Problem #4 Impaired Strength PT Goal 1 Goal / Goal Update *increase scapular strength, to improve posture of shoulder and trunk: in standing, pt maintain good shoulder position during therapy session Target Visit 8
--- NOTE | 2024-07-04 14:36 | PTOPEVAL1 ---
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, then flared up more; xray: cervical 5-6 narrowing; R shoulder: A-C joint degeneration; R hand dominant; No history of neck or shoulder pain; activity: retired; independent with self care and home tasks--more problems with reaching overhead with R arm to do things Reported Pain Level Pain Score Self Report Additional Pain Score Comments pain range of the past week 0-9/10; intermittent into R arm to hand/palm, not in fingers increase pain: reaching over, lifting decrease pain: change positions, over the counter meds, heat reports with sleeping: awaken from pain 1-2x/day, change position; sleep on sides Assessment PT Clinical Summary Tari has the diagnosis of cervical pain. She has intermittent radicular pain into R LE to hand. She is R hand dominant. Self assessment with Neck Index rating of 22% limitation in activity level. Pain is increased in R shoulder and arm with reaching up her R arm and lifting, and awaken from sleeping 2x/night due to pain. Xray reports states cervical narrowing of disc space at C 5-6 and R shoulder: A-C joint degeneration. With the evaluation: R shoulder active ROM is WNL , with pain increase in shoulder and neck; decreased cervical rotation R/L and pain with retraction, flexion and extension motions; posture of rounded shoulders and forward head, with forward rotation R shoulder and trunk. pain was reduced with cervical manual distraction. Skilled PT services are indicated for modalities to decrease pain- she agreed to dry needling, therapeutic exercises and education for HEP and posture, body mechanics and pain management. Plan of Care Interventions Electrical Stimulation,Hot Pack/Cold Pack,Manual Therapy,Mechanical Traction,Neuro Re-education, Patient/Caregiver Education,Therapeutic Activities ,Therapeutic Exercise,Ultrasound,Other Other Interventions taping, dry needling--pt agreed to PT Services Indicated Yes Treatment Frequency and 1-2x/wk for 8 visits Duration These treatments will address the objective and functional deficits as defined above. The patient will be advanced safely and appropriately in order for the patient to progress towards his/her prior level of function. Additional exercises will be introduced and as well as a comprehensive home exercise program upon discharge, if needed, ?to ensure carryover of functional gains achieved in the clinic. This treatment plan has been reviewed and agreement upon by the patient.
--- NOTE | 2024-08-07 09:47 | PCPTNOTE ---
pt called and canceled today's reeval due to illness.
--- NOTE | 2024-08-07 15:26 | OPREHPOC ---
Outpatient Therapy Plan of Care This is a Multidisciplinary Plan of Care that may contain components documented by all disciplines (PT, OT, and ST.) PT Problem 1 PT Problem #1 Knowledge Deficit PT Goal 1 Goal / Goal Update 1* independent with HEP 2* pt use correct body mechanics with lifting from floor 08-07-24 d/c pt called and canceled PT goals not addressed Target Visit 8 PT Problem 2 PT Problem #2 Pain PT Goal 1 Goal / Goal Update 1* pt report pain rating at worst of 6/10 2* pt report with sleeping, awaken due to pain 1x/ night 08-07-24 d/c pt called and canceled PT goals not addressed Target Visit 8 PT Problem 3 PT Problem #3 Impaired Functional Mobility PT Goal 1 Goal / Goal Update pt perform 3x, in standing, without an increase in pain reported: to improve self care, driving and home task performance: R shoulder 1* flexion to 150' 2* abduction to 150' cervical 3* rotation R 70' 08-07-24 d/c pt called and canceled PT goals not addressed 4* rotation L 70' 5* flexion, looking to floor Target Visit 8 PT Problem 4 PT Problem #4 Impaired Strength PT Goal 1 Goal / Goal Update *increase scapular strength, to improve posture of shoulder and trunk: in standing, pt maintain good shoulder position during therapy session 08-07-24 d/c pt called and canceled PT goals not addressed Target Visit 8
--- NOTE | 2024-08-07 15:26 | PTOPDC ---
Assessment and note entered by Sachi Johnston, PT Assessment Status Discharge - Pt Not Present ICD-10 Condition Codes (PT) Cervicalgia M54.2 Onset May 2024 Subjective Information pt called to cancel today's reevaluation and stated she wanted to be discharged from PT. Assessment PT Clinical Summary Tari has received 7 PT sessions. She called today and wanted to be discharged from PT. The goals were not addressed. Discharge PT due to pt request. Plan of Care PT Services Indicated No
== END 2024-08-07 16:58 | disposition home or self-care (01) ==
LOC: ANHPT 15:00
PROVIDERS: PCP Internal Medicine; Visit Provider Orthopaedic Surgery
DX: M54.2 Cervicalgia (principal)
CPT/HCPCS: 97110; 97140; 97161; 97530